=== PATIENT | female | born 1975 | race Caucasian/White ===

== ENCOUNTER 2017-10-30 10:59 | Emergency (ER) | payer OTHER, SELFPAY ==
[2017-10-30 11:00] VITALS: BP 197/132; PULSE 101; RESP 20; TEMP 36.9; O2SAT 100; BMI 31.4
--- NOTE | 2017-10-30 11:13 | CT_ITS ---
STUDY: CT ABDOMEN AND PELVIS WITHOUT CONTRAST REASON FOR EXAM: Female, 41 years old. Constipation. Two-week history of intermittent nausea and vomiting. Prior right oophorectomy. RADIATION DOSAGE (If Supplied By Facility): CTDIvol = ( 11.42 ) mGy, DLP = ( 599.16 ) mGycm TECHNIQUE: Transaxial images were obtained from the dome of the diaphragm to the symphysis pubis without oral contrast, and without intravenous contrast. Sagittal and coronal images were reconstructed. Individualized dose optimization techniques were used for this CT. COMPARISON: None. FINDINGS: The visualized lung bases are unremarkable. The visualized portions of the heart are within normal limits. Normal liver. There are surgical clips in the gallbladder fossa consistent with a prior cholecystectomy. Normal spleen. Normal pancreas. Normal bilateral adrenal glands. Normal right kidney. Normal left kidney. There is a small hiatal hernia. Normal small intestine. Normal colon. The appendix is visualized and appears normal. Normal abdominal aorta. Normal inferior vena cava. Normal retroperitoneum. Normal urinary bladder. There are small benign-appearing bilateral inguinal lymph nodes. Normal abdominal wall. There are mild degenerative changes of the visualized lumbar spine. CT/Abdomen/Pelvis without Cont IMPRESSION: Normal unenhanced CT of the abdomen and pelvis. Electronically Signed: Mal Pedersen MD at 12:27 EST Tel [phone], Service support ,
[2017-10-30] MEDS: 0.9% Normal Saline 1,000 ML 125 ML IV (11:40)
[2017-10-30 11:43] LABS: Absolute Lymphocyte Count 1.81 X10^3/ul (0.83-4.51); Absolute Neutrophil Count 8.8 X10^3/uL (2.0-7.7); Basophil# 0.02 X10^3/uL; Basophil% 0.2 % (0-1); Eosinophils% 0.9 % (0-5); Hematocrit 44.2 % (37-47); Hemoglobin 15.4 g/dl (12.0-15.0); Lymphocyte # 1.81 X10^3/ul (4.0); Lymphocyte % 15.9 % (19-41); Mean Corp Hgb Conc 34.8 g/gl (32-36); Mean Corpuscular Hgb 29.4 pg (27.0-32.0); Mean Corpuscular Volume 84.4 fL (81-99); Mean Platelet Vol. 9.1 fl (6.2-12.0); Monocyte# 0.67 X10^3/uL; Monocyte% 5.9 % (0-10); Neutrophil # 8.75 X10^3/uL (2.7-7.7); Neutrophil % 76.9 % (47-70); POSITIVE COUNT NO; POSITIVE DIFFERENTIAL NO; POSITIVE MORPHOLOGY NO; Platelet Count 287 K/mm3 (150-450); RBC Distribution Width CV 12.8 % (11.6-14.6); RBC Distribution Width SD 39.4 fl (35.1-43.9); Red Blood Count 5.24 M/mm3 (4.2-5.4); White Blood Count 11.4 K/mm3 (4.4-11.0)
[2017-10-30 11:59] LABS: Anion Gap 9 (5-15); BUN 12 mg/dL (7-18); BUN/Creat Ratio 14.9 RATIO (10-20); Calcium,Total 8.6 mg/dL (8.5-10.1); Chloride 101 mmol/L (98-107); EST Glomerular Filtration Rate 82 mL/min (>60); Est Glom Filt Rate - Afr Amer 100 mL/min (>60); Glucose 111 mg/dL (74-106); Potassium 3.6 mmol/L (3.5-5.1); Sodium Level 137 mmol/L (136-145)
[2017-10-30 13:52] VITALS: BP 127/85; PULSE 61; RESP 15; O2SAT 98
[2017-10-30 13:56] LABS: Mucous, Urine 0 SEEN /hpf (<or=2+); Red Blood Cells-Urine 0 SEEN /hpf (0-5); White Blood Cells 0 SEEN /hpf (0-5)
[2017-10-30 14:03] LABS: Color, Urine Straw (Yellow); Glucose, Dipstick Normal (Normal); Ketone-Dipstick 15 mg/dl (Negative); Leukocyte Esterase-Dipstick Negative /ul (Negative); Nitrite-Dipstick Negative (Negative); Occult Blood-Urine Negative /ul (Negative); Protein-Dipstick 30 mg/dl (Negative); Specific Gravity, Urine 1.015 (1.002-1.030); Urine Bilirubin Dipstick Negative (Negative); Urine Clarity Sl. Cloudy (Clear); Urine Urobilinogen Normal (Normal)
[2017-10-30 14:19] LABS: Bacteria RARE /hpf (None Seen); Squamous Epithelial Cells - UA 0-5 SEEN /hpf (5-10)
--- NOTE | 2017-10-30 15:00 | ED.VISSUMM ---
- ER Visit Summary Date of Service: 10/30/17 Chief Complaint: [Constipation and abdominal pain] History of Present Illness: The patient is a 41 F [presents to the emergency department chief complaint of abdominal pain and constipation it has been going on for about 2 weeks. Patient states that she has had small bowel movements but has not completely been able to empty her colon in the last 2 weeks. Patient states that she tried to milk of magnesium last night and is had some watery type discharge from her rectum but no solid stool. Patient went to some lower abdominal discomfort and did vomit several times this morning ?3. Patient has not had a fever. Patient denies urinary symptoms. Patient denies any new medications or changes in her diet. Patient does not have a history of constipation.] Physical Examination: [HEENT-PERRLA, EOMI. Cranial nerves II through XII grossly intact. TMs clear. Mucous membranes moist. No adenopathy. Cardiovascular-regular rate and rhythm without murmur or ectopy Lungs-clear to auscultation, chest wall stable without crepitus or subcu emphysema Abdomen-normoactive bowel sounds, soft, mild tenderness over the suprapubic region with some mild guarding. There is no rebound, rigidity, or perineal signs. Rectal exam-there was stool palpated high up in the rectum that was brown and without evidence of blood. No rectal masses palpated. Extremities-intact ?4, normal range of motion, normal pulses, atraumatic] Test Results: [CBC with differential was normal. Chemistries were unremarkable. CT flank showed nothing acute. Urinalysis was normal.] Emergency Department Course and Treatment: [Patient had a soapsuds enema which gave her great relief and she had a large bowel movement in the department. Patient feels significantly better.] Treatment Plan: [Patient advised to increase fiber intake and use MiraLAX daily. Patient advised to make sure she drinks enough water every day.] Disposition: [Discharged to home in stable condition] Impression: [Abdominal pain Constipation] This note was generated with [employer] dictation software. It may contain incorrect words, spelling, and punctuation that were not noted in review of the chart prior to signing ED Disposition - Plan for ED Patient: Chief Complaint: Constipation Referrals: Maura Posey MD [Primary Care Provider] -
--- NOTE | 2017-10-30 15:03 | ED.DEP ---
ED Disposition - Plan for ED Patient: Chief Complaint: Constipation Instructions: ED Constipation Prescriptions: ProMETHAzine [Phenergan] 25 mg PO Q6H PRN PRN #10 tab PRN Reason: Nausea Referrals: Amelia Akbar DO [STAFF PHYSICIAN] - 5-7 Days
[2017-10-30 15:04] VITALS: BP 134/77; PULSE 62; RESP 15; O2SAT 98
[2017-10-30 15:10] VITALS: BP 123/77; PULSE 81; RESP 16; O2SAT 98
== END 2017-10-30 15:11 | disposition home or self-care (01) ==
LOC: ED 12:18
PROVIDERS: Emergency Provider Emergency Medicine; Family Provider Internal Medicine; PCP Internal Medicine
DX: K59.00 Constipation, unspecified (principal); R10.30 Lower abdominal pain, unspecified; J45.909 Unspecified asthma, uncomplicated; G43.909 Migraine, unspecified, not intractable, without status migrainosus; Z79.51 Long term (current) use of inhaled steroids; Z79.899 Other long term (current) drug therapy
CPT/HCPCS: 74176; 80048; 81001; 85025; 96360; 96361; 99285; J7030; A4216

== ENCOUNTER 2018-10-31 14:55 | Emergency (ER) | payer OTHER, SELFPAY ==
[2018-10-31 15:03] VITALS: BP 168/109; PULSE 81; RESP 16; TEMP 36.6; O2SAT 99; BMI 30.9
--- NOTE | 2018-10-31 15:16 | RAD_ITS ---
STUDY: X-RAY - RIGHT HAND REASON FOR EXAM: Female, 42 years old. Trauma, right hand pain TECHNIQUE: 3 view(s) of the hand. COMPARISON: None. FINDINGS: Normal radiocarpal articulation. Normal distal radioulnar joint. Normal visualized carpal bones. Normal carpal articulations Normal carpometacarpal articulation of the thumb. Normal second through fifth carpometacarpal joints. Normal metacarpi. Normal metacarpophalangeal joint of the thumb. Normal interphalangeal joint of the thumb. Normal proximal and distal phalanges of the thumb. Normal metacarpophalangeal joints of the second through fifth fingers. Normal proximal and distal interphalangeal joints of the second through fifth fingers. Transverse minimally angulated fracture at the base of the fifth proximal phalanx with less than 2 mm of displacement. There is soft tissue swelling of the fifth digit. The soft tissue structures are otherwise unremarkable. RAD/Hand Min 3 Views IMPRESSION: Fifth proximal phalanx fracture. Electronically Signed: Daryl Valadez MD at 15:42 EST , Service support ,
[2018-10-31] MEDS: oxyCODONE 5 MG Tablet PO (15:20)
--- NOTE | 2018-10-31 16:12 | ED.DCSUM_ITS ---
- ER Visit Summary Date of Service: 10/31/18 Chief Complaint: Right fifth finger injury History of Present Illness: The patient is a 42 F presents to the emergency department with right fifth finger injury. Patient was in her normal state of health. She slipped and struck her hand. She states that she had immediate pain in the fifth finger. She was unable to extend it secondary to pain. She did not strike her head. She denies other injury. The patient is otherwise been in her normal state of health. Physical Examination: Patient does have some ecchymosis and swelling over the right fifth finger. She has mild flexion. She guards against extension secondary to pain. Refills less than 2 seconds. Two-point determination is preserved. Test Results: [] Emergency Department Course and Treatment: X-rays were obtained of the finger. Patient has a minimally displaced fracture at the base of the proximal fifth phalanges. She is placed in an AlumaFoam splint. She will be given analgesics and outpatient orthopedic follow-up. Patient is comfortable with this plan of care. Treatment Plan: [] Disposition: Discharge Impression: 1. Right fifth finger fracture This note was generated with gocarsh[employer].comation software. It may contain incorrect words, spelling, and punctuation that were not noted in review of the chart prior to signing ED Disposition - Plan for ED Patient: Instructions: ED Fx Finger Closed Prescriptions: Oxycodone HCl/Acetaminophen [Percocet 5/325] 1 tab PO Q6H PRN PRN 3 Days #12 tab PRN Reason: Pain Referrals: Nghia Carlisle MD [STAFF PHYSICIAN] - 2 Days
== END 2018-10-31 16:38 | disposition home or self-care (01) ==
LOC: ED 16:22
PROVIDERS: Emergency Provider Emergency Medicine; Family Provider Internal Medicine; PCP Internal Medicine
DX: S62.616A Displaced fracture of proximal phalanx of right little finger, initial encounter for closed fracture (principal); J45.909 Unspecified asthma, uncomplicated; Z79.51 Long term (current) use of inhaled steroids; Z79.899 Other long term (current) drug therapy; W01.10XA Fall on same level from slipping, tripping and stumbling with subsequent striking against unspecified object, initial encounter; Y93.89 Activity, other specified; Y92.89 Other specified places as the place of occurrence of the external cause; Y99.8 Other external cause status
CPT/HCPCS: 73130; 99283

== ENCOUNTER 2019-11-04 09:26 | Inpatient (IN) | payer OTHER, SELFPAY ==
[2019-11-04] VITALS (44 sets, daily range): BP systolic 116–217; BP diastolic 60–131; PULSE 53–98; RESP 11–26; TEMP 36.6; O2SAT 95–100; BMI 32.3; BMI 31.8
--- NOTE | 2019-11-04 09:38 | RAD_ITS ---
STUDY: X-RAY CHEST REASON FOR EXAM: Female, 43 years old. Chest pain, abnormal EKG in doctors office TECHNIQUE: Single AP portable view of the chest. COMPARISON: None. FINDINGS: Cardiac silhouette unremarkable. Pulmonary vascularity unremarkable. Aorta unremarkable. No focal patchy airspace opacities. No pleural effusions. Upper abdomen unremarkable. Osseous structures intact. No pneumothorax. RAD/Chest 1 View (Portable) IMPRESSION: No acute cardiopulmonary findings Electronically Signed: João Lieberman DO at 10:22 EST Tel , Service support ,
--- NOTE | 2019-11-04 09:38 | EKG12_ITS ---
Test Reason : CP Blood Pressure : / mmHG Vent. Rate : 086 BPM Atrial Rate : 086 BPM P-R Int : 168 ms QRS Dur : 094 ms QT Int : 382 ms P-R-T Axes : 017 -35 075 degrees QTc Int : 457 ms Normal sinus rhythm Left axis deviation Left ventricular hypertrophy with repolarization abnormality Abnormal ECG Confirmed by SAROJ MAGAÑA, REBECA ([id number]), purchasing expeditor CHIVO SAMUEL ([id number]) on 11/08/2019 8:49:24 AM Referred By: Iban Zarate Confirmed By:ZAHEER KYLE MD
--- NOTE | 2019-11-04 09:40 | ED.DCSUM_ITS ---
History of Present Illness Chief Complaint: Chest Pain Detail of Chief Complaint: Migraine headache followed by chest discomfort Informant: Patient Onset: Today, - - Administered Imitrex at 0300. She administered second dose at 0530. Proximally 30 minutes later she complained of discomfort/funny feeling in her chest. She was able to go to sleep. The pain was still present upon awakening. Coworker commented she did not look well. She went to her primary care physician who sent her to the emergency department. Context: Sudden Onset Timing: Continuous Quality: Comfort Location: Right/mid chest Current Severity: - - Chest pain-free since 844 Maximum Severity: Moderate Worsened by: Uncertain Relieved by: Nothing Associated Symptoms: Shortness of breath Narrative: Patient is a 43-year-old woman with history of migraine headaches who presents from physician's office because of chest pain. She states she has history of asthma and has white coat syndrome. She complained of headache administered Imitrex. Since headache did not resolve she administered second dose of Imitrex. Shortly thereafter she developed chest discomfort with shortness of breath. She was able to fall asleep. Upon awakening she had chest pain. She is unable to determine whether the pain had change in its intensity. Did not change in its location or quality. She states that were coworkers noted she not look well. She went to physicians office because of the chest pain. Physician sent her here. EKG was performed at physician's office and revealed a sinus rhythm. There is evidence of LVH with ST T wave repolarization changes. There is J-point elevation inferior leads. There is no loss of the concavity of the ST-T wave segment. Patient denies history of VTE. She denies leg pain, swelling discoloration. She states she is presently on her menstrual cycle. She denies family history of coronary disease. She denies family history of stroke at early age. She states she smoked for short period of time in college. Prior similar symptoms: No Recent Illness/Hospitalization: No - Past Medical History (1) Migraine headache Status: Acute (2) Asthma Status: Acute Past Medical History - Allergies and Home Meds Allergies/Adverse Reactions: Allergies acetaminophen [From Midrin] Allergy (Verified 11/04/19 09:32) Other codeine Allergy (Verified 11/04/19 09:32) Unknown dichloralphenazone [From Midrin] Allergy (Verified 11/04/19 09:32) Other isometheptene mucate [From Midrin] Allergy (Verified 11/04/19 09:32) Other Primary Care Physician: Amelia Akbar DO [Primary Care Provider] - Prior records reviewed: Yes Surgical History: cholecystectomy, - - Right oophorectomy and extraction of wisdom teeth Lives: Alone Smoking Status: Never smoker Alcohol: None Drugs: None Review of Systems General: Denies: Chills, Fever, Sweats Eyes: Denies: Visual changes - bilaterally, Blurred Vision - bilaterally, Diplopia ENT: Reports: - - He denies ringing in ears or decreased hearing.. Denies: Rhinorrhea, Sore throat Cardiovascular: Reports: Chest pain. Denies: Palpitations, Heart racing, -, - Respiratory: Reports: Dyspnea. Denies: Cough, Sputum, Dyspnea on exertion, Orthopnea, Paroxysmal nocturnal dyspnea, -, - Gastrointestinal: Denies: Abdominal pain, Nausea, Vomiting, Diarrhea, Melena, Hematochezia Genitourinary: Denies: Dysuria, Hematuria, Frequency Musculoskeletal: Reports: Neck pain. Denies: Myalgias, Arthralgias, Back pain, Swelling, Extremity Pain, -, - Neurological: Reports: Headache. Denies: Weakness, Parasthesia, Numbness, -, - Hematologic: Denies: Easy bruising, Easy bleeding Allergy: Denies: Uticaria Physical Exam Vital Signs/Narrative: Vital Signs Temp Pulse Resp BP Pulse Ox 11/04/19 09:27 97.8 F 95 16 217/131 H 100 Inital Vital Signs reviewed: Yes General: Well nourished, Well developed, Obese, No Acute Distress Head: Normocephalic, Atraumatic Eyes: Perrl, EOMI. Negative for: Pale conjunctiva, Scleral icterus ENT: Moist mucous membranes, No rhinorrhea Neck: Supple, Nontender, No lymphadenopathy, No JVD Cardiovascular: Regular rate, Regular rhythm, No murmurs, Normal S1, Normal S2 Respiratory: No distress, CTA bilaterally, Chest nontender Abdomen: Soft, Nontender, Nondistended, Normal bowel sounds Back: Nontender, Normal Inspection Extremities: Nontender, No edema, - - There is no asymmetry, swelling, discoloration, leg vein distention, palpable cords or tenderness along the distribution of the deep venous system. Skin: Normal color, No rash Neurological: Alert, Oriented x3, Cranial nerves II-XII grossly intact, Normal Strength, Normal Sensation Psychological: - - Patient is slightly anxious. Diagnostic/Tx/Re-eval Chest X-Ray - ED: 1 View, Read by ED Physician, Normal, Heart, Lungs, Mediastinum, Bony Structures, No Acute Disease, Chronic Changes 11/04/19 09:38 Chest 1 View (Portable) [RAD] Stat Impressions Chest X-Ray 11/04/19 09:38 IMPRESSION: No acute cardiopulmonary findings Electronically Signed: João Lieberman, at 10:22 EST Tel , Service support , 11/04/19 09:38 Chest 1 View (Portable) [RAD] Stat Laboratory Results 11/04/19 11/04/19 09:55 09:55 WBC 7.9 RBC 5.19 Hgb 15.0 Hct 43.8 MCV 84.4 MCH 28.9 MCHC 34.2 RDW Std Deviation 38.7 RDW Coeff of Melanie 12.6 Plt Count 257 MPV 9.9 Immature Gran % (Auto) 0.100 Neut % (Auto) 64.2 Lymph % (Auto) 26.5 [place] % (Auto) 6.1 Eos % (Auto) 2.7 Baso % (Auto) 0.4 Absolute Neuts (auto) 5.1 Absolute Lymphs (auto) 2.08 Nucleated RBC % 0 Sodium 138 Potassium 3.6 Chloride 106 Carbon Dioxide 27.0 Anion Gap 5 BUN 16 Creatinine 0.88 Estim Creat Clear Calc 69.71 Est GFR (MDRD) Af Amer 89 Est GFR (MDRD) Non-Af 73 BUN/Creatinine Ratio 18.1 Glucose 108 H Calcium 9.4 Troponin I 0.296 H Troponin is elevated at 0.296. CBC is unremarkable. Basic metabolic panel is unremarkable. Patient was informed of results and need for admission and further testing. Her most recent blood pressure is 192/107 with a heart rate of 92. 20 mg of labetalol was ordered. The hospitalist was paged for admission. Patient was informed she will need either a stress test or potentially a cardiac catheterization especially if her enzymes rise. - EKG Initial EKG Interpretation: Sinus Rhythm - Sinus rhythm with a ventricular rate 86. CA interval is 168 ms. QS duration 94 ms. QT duration 382 ms. [place] to the left. There is evidence of left ventricular hypertrophy with repolarization abnormality. This is unchanged from EKG dated July 28, 2008. The left ventricular hypertrophy may be due to untreated hypertension. - Medical Decision Making Patient presents with chest pain. Differential would include adverse reaction to Imitrex, heart strain due to markedly elevated blood pressure 201/141, cardiac ischemia, GI etiology. EKG, blood work and chest x-ray obtained. Initial blood pressure per triage was 217/131. Patient did not receive anticoagulant because of her elevated blood pressure and concern for intracranial bleed. She did receive aspirin and labetalol as previously documented. - Critical Care Time Critical care time (excluding procedures): 30-74 minutes, Discussing w/Patient &/or Family/Palliative Care Specialist, Discussing w/Consultants, Arranging Admission or Transfer - This includes time for history, review of prior records, documentation ED Disposition - Plan for ED Patient: Disposition: Acute Care Hospital [facility] Diagnosis: Midsternal chest pain, Hypertensive urgency, Elevated troponin I level Referrals: Amelia Akbar DO [Primary Care Provider] -
[2019-11-04] MEDS: Aspirin 81 MG TAB.CHEW 324 MG PO (10:06)
[2019-11-04 10:10] LABS: Absolute Lymphocyte Count 2.08 X10^3/uL (0.83-4.51); Absolute Neutrophil Count 5.1 X10^3/uL (2.0-7.7); Basophil# 0.03 X10^3/uL; Basophil% 0.4 % (0-1); Eosinophil# 0.21 X10^3/uL; Eosinophils% 2.7 % (0-5); Hematocrit 43.8 % (37-47); Lymphocyte # 2.08 X10^3/ul (4.0); Lymphocyte % 26.5 % (19-41); Mean Corp Hgb Conc 34.2 g/dL (32-36); Mean Corpuscular Hgb 28.9 pg (27.0-32.0); Mean Corpuscular Volume 84.4 fL (81-99); Mean Platelet Vol. 9.9 fl (6.2-12.0); Monocyte# 0.48 X10^3/uL; Monocyte% 6.1 % (0-10); NRBC Flagged by Analyzer 0 % (0-5); Neutrophil # 5.05 X10^3/uL (2.7-7.7); Neutrophil % 64.2 % (47-70); Platelet Count 257 K/mm3 (150-450); RBC Distribution Width CV 12.6 % (11.6-14.6); RBC Distribution Width SD 38.7 fl (35.1-43.9); Red Blood Count 5.19 M/mm3 (4.2-5.4); White Blood Count 7.9 K/mm3 (4.4-11.0)
[2019-11-04 10:23] LABS: Anion Gap 5 (5-15); BUN 16 mg/dL (7-18); BUN/Creat Ratio 18.1 RATIO (10-20); Calcium,Total 9.4 mg/dL (8.5-10.1); Chloride 106 mmol/L (98-107); Creatinine, Serum 0.88 mg/dL (0.55-1.02); EST Glomerular Filtration Rate 73 mL/min (>60); Est Glom Filt Rate - Afr Amer 89 mL/min (>60); Estimated Creatinine Clearance 69.71 ml/min; Glucose 108 mg/dL (74-106); Potassium 3.6 mmol/L (3.5-5.1); Sodium Level 138 mmol/L (136-145)
--- NOTE | 2019-11-04 11:05 | HP.PCM_ITS ---
Problem List (1) Migraine headache Status: Acute (2) Asthma Status: Acute (3) Midsternal chest pain Status: Acute (4) Elevated troponin I level Status: Acute (5) Hypertensive emergency Status: Acute History of Present Illness Date of Admission: 11/04/19 Chief Complaint: Chest tightness/hypertensive emergency The patient is a 43 year old F with history of migraine headache and asthma came to ER with chest tightness. Earlier in the morning on day of admission, she had migraine headache and took 2 doses of Imitrex 50 mg 1/2 hours apart. Thereafter, she felt chest tightness/abnormal feeling of chest but without shortness of breath, palpitation, near syncope or syncope. This discussion lasted for 3 hours while she was working therefore came to ER. In ED, triage vitals shows blood pressure 217/131, heart rate 95, pulse ox 100% on room air. In ED, she was given labetalol 20 mg IV [, still her blood pressure is 184/113.] EKG shows normal sinus rhythm, LAD, LVH with repolarization abnormality and nonspecific ST-T changes. Previous EKG of 2007 did not had LAD, LVH or repolar ization abnormality. Brim Welt Sewing Machine Operator is consulted. Patient is started on nicardipine drip and admitted in ICU. Past Medical History Allergies acetaminophen [From Midrin] Allergy (Verified 11/04/19 09:32) Other codeine Allergy (Verified 11/04/19 09:32) Unknown dichloralphenazone [From Midrin] Allergy (Verified 11/04/19 09:32) Other isometheptene mucate [From Midrin] Allergy (Verified 11/04/19 09:32) Other Home Medications: Ambulatory Orders Medication Instructions Recorded Albuterol Inhaler [Ventolin Hfa] 2 puff INHALATION Q6H PRN PRN 10/03/13 Fluticasone/Salmeterol [Advair 1 puff INHALATION BID 10/03/13 250/50 Mcg Diskus] Sumatriptan Succinate [Imitrex] 100 mg PO .X1 PRN 10/03/13 Surgical History: cholecystectomy, - - Right oophorectomy and extraction of wisdom teeth Lives: Alone Smoking Status: Never smoker Tobacco Use: Non-smoker Alcohol: None Drugs: None - *Family History Maternal History Items: Heart Disease - Pacemaker, Hypertension Review of Systems Constitutional: Reports: Malaise, Weakness. Denies: Chills, Fever, Night Sweats, Weight Change HEENT: Denies: Head Aches, Sinus Congestion, Sinus Drainage Cardiovascular: Reports: Chest Tightness. Denies: Chest Pain, Palpitations Respiratory: Denies: Cough, Hemoptysis, Shortness of Breath, Shortness of breath at rest, Sputum production Gastrointestinal: Denies: Abdominal Pain, Nausea, Vomiting Genitourinary: Denies: Dysuria, Frequency, Hematuria, Incontinence, Nocturia, Retention, Urgency Musculoskeletal: Denies: Joint Pain, Joint Tenderness Skin: Denies: Rash, Wounds Neurological: Reports: Headaches. Denies: Balance problems, Blurred vision, Double vision, Change in Speech, Slurred speech, Focal weakness, Numbness, Tingling Psychiatric: Denies: Anxiety, Depression, Homicidal Ideations, Suicidal Ideations Hematologic/ Lymphatic: Denies: Easy Bruising, Easy Bleeding VTE Information - Inpt Only VTE Present on Admission: No VTE Mechan Device Prophylaxis: None VTE Pharm Prophylaxis ordered?: Yes Patient Problems: Active and Suspected Problems Midsternal chest pain (Acute) Elevated troponin I level (Acute) Hypertensive emergency (Acute) - Physical Exam Vitals/I&O's: Vital Signs Temp Pulse Resp BP Pulse Ox 97.8 F 96 18 187/125 H 99 11/04/19 09:27 11/04/19 10:53 11/04/19 10:53 11/04/19 10:53 11/04/19 10:53 Oxygen Flow Rate (L/min) 2 Oxygen Delivery Method Nasal Cannula Weight: 188 lb 0.869 oz Body Mass Index (BMI) 32.3 General: Alert, Oriented x3, Cooperative HEENT: Atraumatic, PERRLA, EOMI, Normocephalic Oral: No Gingival or Mucosal Lesions/ Ulcerations, Dry Mucosa Neck: Supple, No JVD, Negative Carotid Bruits Lungs: Clear to auscultation, Normal air movement Cardiovascular: Regular rate, Regular Rhythm, Normal S1, Normal S2, No murmurs Abdomen: Bowel Sounds Present, Soft, Non Tender, Non-Distended Extremities: Capillary Refill Less than 3 Seconds, Edema Skin: No rashes, No breakdown Musculoskeletal: No Tenderness to Palpation of Joints or Extremities Lymphatic: No Cervical, Supraclavicular, or Inguinal Adenopathy Neurological: Cranial nerves II-XII grossly intact, Deep Tendon Reflexes 2+/4 and Symmetrical, Neuro grossly intact, Motor Exam 5/5 strength throughout Psych/Mental Status: Normal Affect, Appropriate Laboratory Results 11/04/19 09:55: WBC 7.9, RBC 5.19, Hgb 15.0, Hct 43.8, MCV 84.4, MCH 28.9, MCHC 34.2, RDW Std Deviation 38.7, RDW Coeff of Melanie 12.6, Plt Count 257, MPV 9.9, Immature Gran % (Auto) 0.100, Neut % (Auto) 64.2, Lymph % (Auto) 26.5, [place] % (A uto) 6.1, Eos % (Auto) 2.7, Baso % (Auto) 0.4, Absolute Neuts (auto) 5.1, Absolute Lymphs (auto) 2.08, Nucleated RBC % 0 11/04/19 09:55: Sodium 138, Potassium 3.6, Chloride 106, Carbon Dioxide 27.0, Anion Gap 5, BUN 16, Creatinine 0.88, Estim Creat Clear Calc 69.71, Est GFR (MDRD) Af Amer 89, Est GFR (MDRD) Non-Af 73, BUN/Creatinine Ratio 18.1, Glucose 108 H, Calcium 9.4, Troponin I 0.296 H Assessment/Plan All Active Problems Migraine headache (Acute) Asthma (Acute) Midsternal chest pain (Acute) Elevated troponin I level (Acute) Hypertensive emergency (Acute) The patient is a 43 year old F with history of migraine headache and asthma came to ER with chest tightness In ED, triage vitals shows blood pressure 217/131, heart rate 95, pulse ox 100% on room air. I EKG shows normal sinus rhythm, LAD, LVH with repolarization abnormality and nonspecific ST-T changes. Previous EKG of 2007 did not had LAD, LVH or repolarization abnormality. Brim [employer] Sewing Machine Operator is consulted. Patient is started on nicardipine drip and admitted in ICU. 1. Hypertensive emergency with atypical chest pain/non-STEMI: Patient is being admitted in ICU. First troponin 0 0.296 serial troponin enzymes. Started on nicardipine drip. Repeat twelve-lead EKG. Brim Welt Sewing Machine Operator is been consulted. 2D echo ordered. Patient had aspirin in ER. Started on aspirin and low-dose Coreg. 2. Abnormal EKG: Showing changes of LVH with repolarization abnormality. 3. Migraine headache on Imitrex:Not a good candidate for Imitrex going forward. It has side effect/complaint of hypertensive emergency and dissection. 4. Chronic asthma: Stable. On albutero INHALER as needed. 5. DVT prophylaxis: Lovenox 40 mG subcu daily Clinical Impression(s) from Imaging Studies Chest X-Ray 11/04/19 09:38 IMPRESSION: No acute cardiopulmonary findings Code Visit Inpatient E&M: 70333 Init Hosp L3
--- NOTE | 2019-11-04 11:43 | EKG12_ITS ---
Test Reason : AM EKG Blood Pressure : / mmHG Vent. Rate : 065 BPM Atrial Rate : 065 BPM P-R Int : 176 ms QRS Dur : 104 ms QT Int : 444 ms P-R-T Axes : 034 -44 -86 degrees QTc Int : 461 ms Normal sinus rhythm Left axis deviation Voltage criteria for left ventricular hypertrophy ST & T wave abnormality, consider inferior ischemia ST & T wave abnormality, consider anterolateral ischemia Prolonged QT Abnormal ECG Confirmed by OLIVE MAGAÑA, CLAIR ([id number]), copy editor JOEY DORANTES ([id number]) on 11/10/2019 1:51:38 PM Referred By: Iban Zarate Confirmed By:CLAIR SCHAEFER MD
--- NOTE | 2019-11-04 12:09 | ECHOCS_ITS ---
Reason For Study: HTN emergency Procedure This was a 2D Doppler, Color Flow transthoracic echocardiogram. Exam performed portable in ICU/CCU. Left Ventricle Normal LV size. Concentric left ventricular hypertrophy. The estimated ejection fraction is 60 %. Normal diastology for age. No regional wall motion abnormalities noted. Right Ventricle Normal RV size. Normal systolic function. Atria Normal left atrium. Normal right atrium. Normal atrial septum. Mitral Valve There is no mitral valve stenosis. No mitral valve insufficiency. Tricuspid Valve There is no tricuspid stenosis. Unable to estimate RV systolic pressure due to insufficient tricuspid regurgitant envelope. No tricuspid valve insufficiency. Aortic Valve Trisinus/trileaflet aortic valve. There is no aortic stenosis. No aortic valve insufficiency. Pulmonic Valve There is no pulmonic valvular stenosis. No pulmonic valve insufficiency. Great Vessels Normal aortic root. Pericardium/Pleural No pericardial effusion. MMode/2D Measurements & Calculations LVIDd: 5.2 cm IVSd: 1.2 cm Ao root diam: 3.3 cm LVIDs: 3.8 cm LVPWd: 1.2 cm RVDd: 2.8 cm FS: 27.2 % LAV(MOD-bp): 56.2 ml LVAd ap4: 31.0 cm2 SV(MOD-sp4): 51.4 ml LAV(MOD-bp) Indexed: 29.5 ml/m2 EDV(MOD-sp4): 93.6 ml LAV(MOD-sp2): 34.2 ml EDV(sp4-el): 96.8 ml LAV(MOD-sp4): 79.0 ml LVAs ap4: 19.1 cm2 ESV(MOD-sp4): 42.2 ml ESV(sp4-el): 42.2 ml EF(MOD-sp4): 54.9 % EF(sp4-el): 56.4 % SV(sp4-el): 54.5 ml LA A4 area: 24.0 cm2 LA dimension(2D): 3.9 cm RA A4 area: 15.2 cm2 Doppler Measurements & Calculations MV E max jovi: 64.2 cm/sec Lat Peak E' Jovi: 6.7 cm/sec Med Peak E' Jovi: 4.6 cm/sec MV A max jovi: 95.2 cm/sec E/E' lat: 9.6 E/E' med: 14.0 MV E/A: 0.67 Ao V2 max: 162.2 cm/sec LV V1 max: 103.0 cm/sec PA V2 max: 112.5 cm/sec Ao max P.5 mmHg LV V1 max P.2 mmHg Interpretation Summary The estimated ejection fraction is 60 %. Normal diastology for age. Concentric left ventricular hypertrophy. Ordering Physician: Iban Zarate Referring Physician: Amelia Akbar M.D. Performed By: Lili Leigh RDCS
[2019-11-04 12:50] LABS: Magnesium 2.2 mg/dL (1.6-2.6)
[2019-11-04] MEDS: Enoxaparin 40 MG/0.4 ML Syringe SC (12:57)
[2019-11-04] MEDS: Carvedilol 6.25 MG Tablet PO ×2 (12:57→22:13)
[2019-11-04 15:27] LABS: M R Staph aureus DNA By PCR Negative (Negative); Probe Check PASS; Specimen Processing Control PASS
[2019-11-04] MEDS: Lactated Ringers 1,000 ML 30 ML IV (16:02)
[2019-11-04] MEDS: Ondansetron 4 MG/2 ML Vial IV ×2 (16:04→23:27)
[2019-11-04] MEDS: Morphine 2 MG/ML Syringe IV ×2 (16:25→21:17)
--- NOTE | 2019-11-04 17:16 | CON.PCM_ITS ---
Reason for Consult Date of Consultation: 11/04/19 History of Present Illness: The patient is a 43 year old F [with past medical history of migraine, asthma presenting to the emergency room after a visit to the primary care physician for chest pain. Patient has had migraine since the age of 6 and has been on several medications over the years. She has been on Imitrex for several years. She usually takes 50 mg p.o. 2-3 times a week. This morning she was having migraine headaches and took 50 mg p.o. x1 and then after an hour and a half since she was having ongoing headache took another 50 mg dose. 20 minutes later the headache resolved but patient started having squeezing chest discomfort. She went to work and then went to see her primary care physician. She was then sent to the emergency room by her PCP. When the patient was in the PCPs office her chest pain resolved. In the emergency room patient's blood pressure was 217/131. First troponin was 0.29. Patient was admitted to the ICU and started on Coreg p.o. and nicardipine drip. Her migraine headache has returned. It is associated with nausea and vomiting. Her blood pressure is better at this time. Patient has no prior history of chest pain. She usually does not take an extra dose of Imitrex. Review of systems: All systems reviewed. All else is negative except that in the HPI.] Past Medical History Allergies/Adverse Reactions: Allergies acetaminophen [From Midrin] Allergy (Verified 11/04/19 09:32) Other codeine Allergy (Verified 11/04/19 09:32) Unknown dichloralphenazone [From Midrin] Allergy (Verified 11/04/19 09:32) Other isometheptene mucate [From Midrin] Allergy (Verified 11/04/19 09:32) Other Home Medications: Ambulatory Orders Medication Instructions Recorded Albuterol Inhaler [Ventolin Hfa] 2 puff INHALATION Q6H PRN PRN 10/03/13 Fluticasone/Salmeterol [Advair 1 puff INHALATION BID 10/03/13 250/50 Mcg Diskus] Sumatriptan Succinate [Imitrex] 100 mg PO .X1 PRN 10/03/13 Surgical History: cholecystectomy, - - Right oophorectomy and extraction of wisdom teeth - *Family History Maternal History Items: Heart Disease - Pacemaker, Hypertension Lives: Alone Smoking Status: Never smoker Tobacco Use: Non-smoker Alcohol: None Drugs: None Objective: Vital Signs Temp Pulse Resp BP Pulse Ox 97.9 F 61 16 142/79 H 100 11/04/19 12:00 11/04/19 16:49 11/04/19 16:49 11/04/19 16:49 11/04/19 16:49 Oxygen Flow Rate (L/min) 2 Oxygen Delivery Method Room Air Weight: 185 lb 13.595 oz Body Mass Index (BMI) 31.8 Intake and Output for Last 24 Hours 11/02/19 11/03/19 11/04/19 23:59 23:59 23:59 Intake Total 248.76 / 248.76 Balance 248.76 / 248.76 General: Awake, Alert, Oriented x 3 HEENT: Atraumatic Oral: Moist Mucosa Neck: Supple Lungs: Clear to auscultation Cardiovascular: Regular Rhythm Abdomen: Soft Extremities: No edema Skin: No Rashes Psych/Mental Status: Appropriate 11/04/19 09:55: WBC 7.9, RBC 5.19, Hgb 15.0, Hct 43.8, MCV 84.4, MCH 28.9, MCHC 34.2, Plt Count 257, MPV 9.9, Immature Gran % (Auto) 0.100, Neut % (Auto) 64.2, Lymph % (Auto) 26.5, [place] % (Auto) 6.1, Eos % (Auto) 2.7, Baso % (Auto) 0.4, Absolute Neuts (auto) 5.1, Nucleated RBC % 0 11/04/19 09:55: Sodium 138, Potassium 3.6, Chloride 106, Carbon Dioxide 27.0, Anion Gap 5, BUN 16, Creatinine 0.88, Est GFR (MDRD) Af Amer 89, Est GFR (MDRD) Non-Af 73, BUN/Creatinine Ratio 18.1, Glucose 108 H, Calcium 9.4, Troponin I 0.296 H 11/04/19 09:55: Magnesium 2.2 Rhythm: EKG: ECHO: Stress Test: Cardiac Cath: PCI: CT Surgery: Holter monitor: EPS: PPM: CXR: Chest CT Scan: Assessment/Plan 1. Chest pain: Appears to be related to a combination of coronary vasospasm secondary to the additional dose of Imitrex and/or hypertensive urgency due to the higher dose of Imitrex as well. Agree with cycling cardiac enzymes. Patient could get an outpatient stress test. At this time she is having migraine and is uncomfortable and will not be a candidate for a stress test. Explained to the patient that if her cardiac enzymes go up significantly then we could consider coronary angiography. I think it will be reasonable to look for alternatives to Imitrex for this patient. If there is no ideal alternative available then patient can potentially be on Imitrex as she has tolerated this for several years but should not take more than 50 mg in a 24-hour period. 2. Hypertensive urgency: This also appears to be related to the higher than accustomed dose of Imitrex. However patient apparently has had blood pressures in the 140s over 80s to 90 in the past. I agree with keeping her on carvedilol 6.25 mg p.o. twice daily. Thank you very much for letting us participate in the care of this patient. We will continue to follow her along with you.
[2019-11-04] MEDS: Ketorolac 30 MG/ML Syringe IV (18:40)
[2019-11-04] MEDS: Losartan Potassium 50 MG Tablet PO (18:46)
[2019-11-04] MEDS: Famotidine 20 MG Tablet PO (22:13)
[2019-11-05] VITALS (32 sets, daily range): BP systolic 105–167; BP diastolic 52–99; PULSE 61–86; RESP 12–23; TEMP 36.5–37.3; O2SAT 95–100
[2019-11-05] MEDS: Morphine 2 MG/ML Syringe IV ×4 (04:03→18:21)
[2019-11-05 05:21] LABS: Absolute Lymphocyte Count 1.45 X10^3/uL (0.83-4.51); Absolute Neutrophil Count 10.2 X10^3/uL (2.0-7.7); Basophil# 0.03 X10^3/uL; Basophil% 0.2 % (0-1); Eosinophil# 0.06 X10^3/uL; Eosinophils% 0.5 % (0-5); Hematocrit 40.9 % (37-47); Lymphocyte # 1.45 X10^3/ul (4.0); Lymphocyte % 11.6 % (19-41); Mean Corp Hgb Conc 34.2 g/dL (32-36); Mean Corpuscular Hgb 29.2 pg (27.0-32.0); Mean Corpuscular Volume 85.4 fL (81-99); Mean Platelet Vol. 9.3 fl (6.2-12.0); Monocyte# 0.72 X10^3/uL; Monocyte% 5.8 % (0-10); NRBC Flagged by Analyzer 0 % (0-5); Neutrophil # 10.19 X10^3/uL (2.7-7.7); Neutrophil % 81.5 % (47-70); Platelet Count 232 K/mm3 (150-450); RBC Distribution Width CV 12.8 % (11.6-14.6); RBC Distribution Width SD 39.3 fl (35.1-43.9); Red Blood Count 4.79 M/mm3 (4.2-5.4); White Blood Count 12.5 K/mm3 (4.4-11.0)
--- NOTE | 2019-11-05 05:55 | EKG12_ITS ---
Test Reason : AM EKG Blood Pressure : / mmHG Vent. Rate : 072 BPM Atrial Rate : 072 BPM P-R Int : 186 ms QRS Dur : 100 ms QT Int : 480 ms P-R-T Axes : 049 -41 -79 degrees QTc Int : 525 ms Normal sinus rhythm Left axis deviation Voltage criteria for left ventricular hypertrophy ST & T wave abnormality, consider inferior ischemia ST & T wave abnormality, consider anterolateral ischemia Prolonged QT Abnormal ECG Confirmed by OLIVE MAGAÑA, CLAIR ([id number]), television news video editor JOEY DORANTES ([id number]) on 11/10/2019 1:53:28 PM Referred By: Iban Zarate Confirmed By:CLAIR SCHAEFER MD
[2019-11-05] MEDS: Aspirin E.C. 81 MG Tablet PO (05:59)
[2019-11-05] MEDS: Losartan Potassium 50 MG Tablet PO (05:59)
[2019-11-05] MEDS: Carvedilol 6.25 MG Tablet PO ×2 (05:59→21:35)
[2019-11-05 06:15] LABS: AST(SGOT) 109 U/L (15-37); Alanine Aminotransfer ALT/SGPT 28 U/L (13-56); Albumin, Serum 3.6 g/dL (3.2-5.0); Alkaline Phosphatase 68 U/L (45-117); Anion Gap 8 (5-15); BUN 11 mg/dL (7-18); BUN/Creat Ratio 16.7 RATIO (10-20); Bilirubin, Direct 0.25 mg/dL (0.00-0.30); Calcium,Total 8.4 mg/dL (8.5-10.1); Chloride 107 mmol/L (98-107); Cholesterol 212 mg/dL (200); Creatinine, Serum 0.66 mg/dL (0.55-1.02); EST Glomerular Filtration Rate 103 mL/min (>60); Est Glom Filt Rate - Afr Amer 124 mL/min (>60); Estimated Creatinine Clearance 92.95 ml/min; Globulin 4.1 g/dL (2.2-4.2); Glucose 123 mg/dL (74-106); High Density Lipoprotein 40 mg/dL; Potassium 3.4 mmol/L (3.5-5.1); Protein, Total 7.7 g/dL (6.4-8.2); Sodium Level 138 mmol/L (136-145); Thyroid Stim Hormone (TSH) 0.83 uIU/mL (0.358-3.74); Triglycerides 178 mg/dL; Very Low Density Lipoprotein 36 mg/dL (5-40)
[2019-11-05] MEDS: TICAGRELOR 90 MG TABLET 180 MG PO (06:35)
[2019-11-05 07:09] LABS: Prothrombin Time (Protime)PT. 13.4 SECONDS (11.7-14.9)
[2019-11-05 07:10] LABS: Partial Thromboplast Time 22.9 Seconds (24.1-36.2)
--- NOTE | 2019-11-05 07:22 | PN_ITS ---
Patient Problems: Active and Suspected Problems Midsternal chest pain (Acute) Elevated troponin I level (Acute) Hypertensive emergency (Acute) Reason for Visit: Hypertensive emergency, migraine headache and non-STEMI Objective: Telemetry reviewed. Normal sinus rhythm. Heart rate and blood pressure is controlled. On nicardipine drip Vitals/I&O's: Vital Signs Temp Pulse Resp BP Pulse Ox 98.8 F 74 15 119/71 100 11/05/19 00:00 11/05/19 06:00 11/05/19 06:00 11/05/19 06:00 11/05/19 06:00 Oxygen Flow Rate (L/min) 2 Oxygen Delivery Method Room Air Weight: 185 lb 13.595 oz Body Mass Index (BMI) 31.8 Intake and Output for Last 24 Hours 11/03/19 11/04/19 11/05/19 23:59 23:59 23:59 Intake Total 465.41 / 546.66 531.25 / 531.25 Output Total 300 / 300 Balance 465.41 / 246.66 231.25 / 231.25 General: Alert, Oriented x3, Cooperative HEENT: Atraumatic, PERRLA, EOMI, Normocephalic, - - Mild photophobia. Oral: No Gingival or Mucosal Lesions/ Ulcerations, Dry Mucosa, - Neck: Supple, No JVD, Negative Carotid Bruits Lungs: Clear to auscultation, Normal air movement, No rhonchi, No wheeze, No rales Cardiovascular: Regular rate, Regular Rhythm, Normal S1, Normal S2, No murmurs Abdomen: Bowel Sounds Present, Soft, Non Tender, Non-Distended Extremities: No edema, Capillary Refill Less than 3 Seconds Skin: No rashes, No breakdown Musculoskeletal: No Tenderness to Palpation of Joints or Extremities, Arthritic Changes Neurological: Cranial nerves II-XII grossly intact Psych/Mental Status: Normal Affect, Appropriate Laboratory Results 11/04/19 09:55: WBC 7.9, RBC 5.19, Hgb 15.0, Hct 43.8, MCV 84.4, MCH 28.9, MCHC 34.2, RDW Std Deviation 38.7, RDW Coeff of Melanie 12.6, Plt Count 257, MPV 9.9, Immature Gran % (Auto) 0.100, Neut % (Auto) 64.2, Lymph % (Auto) 26.5, [place] % (Auto) 6.1, Eos % (Auto) 2.7, Baso % (Auto) 0.4, Absolute Neuts (auto) 5.1, Absolute Lymphs (auto) 2.08, Nucleated RBC % 0 11/04/19 09:55: Sodium 138, Potassium 3.6, Chloride 106, Carbon Dioxide 27.0, Anion Gap 5, BUN 16, Creatinine 0.88, Estim Creat Clear Calc 69.71, Est GFR (MDRD) Af Amer 89, Est GFR (MDRD) Non-Af 73, BUN/Creatinine Ratio 18.1, Glucose 108 H, Calcium 9.4, Troponin I 0.296 H 11/04/19 09:55: Magnesium 2.2 11/04/19 13:03: MRSA (PCR) Negative 11/04/19 17:45: Troponin I 6.950 H* 11/04/19 21:33: Troponin I 11.500 H* 11/04/19 23:33: Troponin I 12.900 H* 11/05/19 05:08: WBC 12.5 H, RBC 4.79, Hgb 14.0, Hct 40.9, MCV 85.4, MCH 29.2, MCHC 34.2, RDW Std Deviation 39.3, RDW Coeff of Melanie 12.8, Plt Count 232, MPV 9.3, Immature Gran % (Auto) 0.400, Neut % (Auto) 81.5 H, Lymph % (Auto) 11.6 L, [place] % (Auto) 5.8, Eos % (Auto) 0.5, Baso % (Auto) 0.2, Absolute Neuts (auto) 10.2 H, Absolute Lymphs (auto) 1.45, Nucleated RBC % 0 11/05/19 05:08: Sodium 138, Potassium 3.4 L, Chloride 107, Carbon Dioxide 23.0, Anion Gap 8, BUN 11, Creatinine 0.66, Estim Creat Clear Calc 92.95, Est GFR (MDRD) Af Amer 124, Est GFR (MDRD) Non-Af 103, BUN/Creatinine Ratio 16.7, Glucose 123 H, Calcium 8.4 L, Total Bilirubin 1.50 H, Direct Bilirubin 0.25, AST 109 H, ALT 28, Alkaline Phosphatase 68, Troponin I 16.600 H*, Total Protein 7.7, Albumin 3.6, Globulin 4.1, Triglycerides 178, Cholesterol 212 H, LDL Cholesterol 136 H, VLDL Cholesterol 36, HDL Cholesterol 40, TSH 0.83 11/05/19 05:08: PT 13.4, INR 1.0, APTT 22.9 L Current Medications Albuterol Sulfate (Ventolin Aerosols) 2.5 mg INHALATION Q2H PRN PRN PRN Reason: SOB/Wheezing Aspirin (Ecotrin) 81 mg PO DAILY@0800 [facility] Last Admin: 11/05/19 05:59 Dose: 81 mg Documented by: Carvedilol (Coreg) 6.25 mg PO BID [facility] Last Admin: 11/05/19 05:59 Dose: 6.25 mg Documented by: Enoxaparin Sodium (Lovenox) 40 mg SC DAILY [facility] Last Admin: 11/04/19 22:57 Dose: Not Given Documented by: Famotidine (Pepcid) 20 mg PO BID [facility] Last Admin: 11/04/19 22:13 Dose: 20 mg Documented by: Glucagon () 1 mg IM .X1 PRN PRN Reason: Hypoglycemia Guaifenesin (Robitussin) 10 ml PO Q4H PRN PRN PRN Reason: COUGH Nicardipine HCl 25 mg/ Sodium (Chloride) 250 mls @ 50 mls/hr CONT INF .Q5H [facility]; Protocol Last Titration: 11/05/19 06:00 Dose: 7.5 mg/hr, 75 mls/hr Documented by: Lactated Ringer's () 1,000 mls @ 30 mls/hr IV .[id number] [facility] Last Admin: 11/04/19 16:02 Dose: 30 mls/hr Documented by: Dextrose (Dextrose 10%-Water) 250 mls @ 999 mls/hr IV .Q16M PRN; Protocol PRN Reason: HYPOGLYCEMIA Potassium Chloride () 10 meq in 100 mls @ 100 mls/hr IV BOLUS Q1H [facility] Stop: 11/05/19 11:14 Losartan Potassium (Cozaar) 50 mg PO DAILY [facility] Last Admin: 11/05/19 05:59 Dose: 50 mg Documented by: Morphine Sulfate () 2 mg IV Q3H PRN PRN PRN Reason: Pain Score 6-10/10 Last Admin: 11/05/19 04:03 Dose: 2 mg Documented by: Nitroglycerin (Nitrostat) 0.4 mg SUBLINGUAL Q5M PRN PRN Reason: CARDIAC/CHEST PAIN Ondansetron HCl (Zofran) 4 mg IV Q8H PRN PRN PRN Reason: NAUSEA/VOMITING Last Admin: 11/04/19 23:27 Dose: 4 mg Documented by: Senna/Docusate Sodium (Senokot-S, Page-Colace) 2 tablet PO BID PRN PRN Reason: Constipation Sodium Chloride () 10 - 40 ml IV UD PRN PRN Reason: SALINE FLUSH STROKE Vital Signs/Narrative: Vital Signs Pulse Resp BP Pulse Ox 11/05/19 06:00 74 15 119/71 100 11/05/19 05:30 127/81 H 11/05/19 05:00 86 19 H 133/91 H 96 11/05/19 04:00 80 20 H 139/86 H 98 Medical Necessity - Tobacco Use Smoking Status: Never smoker Tobacco Use: Non-smoker Assessment/Plan All Active Problems Migraine headache (Acute) Asthma (Acute) Midsternal chest pain (Acute) Elevated troponin I level (Acute) Hypertensive emergency (Acute) The patient is a 43 year old F with history of migraine headache and asthma came to ER with chest tightness In ED, triage vitals shows blood pressure 217/131, heart rate 95, pulse ox 100% on room air. I EKG shows normal sinus rhythm, LAD, LVH with repolarization abnormality and nonspecific ST-T changes. Previous EKG of 2007 did not had LAD, LVH or repolarization abnormality. Floor Waxer is consulted. Patient is started on nicardipine drip and admitted in ICU. 1. Hypertensive emergency with atypical chest pain/non-STEMI: Patient is being admitted in ICU. First troponin 0 0.296 serial troponin enzymes. Started on nicardipine drip. 2D echo ordered. Patient had aspirin in ER. Started on aspirin and low-dose Coreg. 11/05: Mild leukocytosis probably secondary to headache or unclear. No fever. Blood pressure is controlled, will try to taper down to completely discontinue. 2. NSTEMI with Abnormal EKG possible inferolateral ischemia: Showing changes of LVH with repolarization abnormality. Repeat EKG done in the morning shows normal sinus rhythm with deep T wave inversion in V3 to V6 and inferior leads. Similar LVH with repolarization abnormality. Overall consistent with inferior lateral ischemia. Troponin elevated, max 16. Plan for cardiac cath in the morning. 3. Migraine headache on Imitrex:Not a good candidate for Imitrex going forward. It has side effect/complaint of hypertensive emergency and dissection. 4. Dyslipidemia: Total cholesterol 212, LDL 136, HDL 40. High intensity statin. 4. Chronic asthma: Stable. On albutero INHALER as needed. Can have home inhaler, Advair 5. DVT prophylaxis: Lovenox 40 mG subcu daily Clinical Impression(s) from Imaging Studies Chest X-Ray 11/04/19 09:38 IMPRESSION: No acute cardiopulmonary findings Laboratory Results 11/04/19 09:55: - Troponin I 0.296 H 11/04/19 09:55: Magnesium 2.2 11/04/19 13:03: MRSA (PCR) Negative 11/04/19 17:45: Troponin I 6.950 H* 11/04/19 21:33: Troponin I 11.500 H* 11/04/19 23:33: Troponin I 12.900 H* 11/05/19 05:08: WBC 12.5 H, RBC 4.79, Hgb 14.0, Hct 40.9, MCV 85.4, MCH 29.2, MCHC 34.2, RDW Std Deviation 39.3, RDW Coeff of Melanie 12.8, Plt Count 232, MPV 9.3, Immature Gran % (Auto) 0.400, Neut % (Auto) 81.5 H, Lymph % (Auto) 11.6 L, [place] % (Auto) 5.8, Eos % (Auto) 0.5, Baso % (Auto) 0.2, Absolute Neuts (auto) 10.2 H, Absolute Lymphs (auto) 1.45, Nucleated RBC % 0 11/05/19 05:08: Sodium 138, Potassium 3.4 L, Chloride 107, Carbon Dioxide 23.0, Anion Gap 8, BUN 11, Creatinine 0.66, Estim Creat Clear Calc 92.95, Est GFR (MDRD) Af Amer 124, Est GFR (MDRD) Non-Af 103, BUN/Creatinine Ratio 16.7, Glucose 123 H, Calcium 8.4 L, Total Bilirubin 1.50 H, Direct Bilirubin 0.25, AST 109 H, ALT 28, Alkaline Phosphatase 68, Troponin I 16.600 H*, Total Protein 7.7, Albumin 3.6, Globulin 4.1, Triglycerides 178, Cholesterol 212 H, LDL Cholesterol 136 H, VLDL Cholesterol 36, HDL Cholesterol 40, TSH 0.83 11/05/19 05:08: PT 13.4, INR 1.0, APTT 22.9 L Active Medications Albuterol Sulfate (Ventolin Aerosols) 2.5 mg INHALATION Q2H PRN PRN PRN Reason: SOB/Wheezing Aspirin (Ecotrin) 81 mg PO DAILY@0800 [facility] Last Admin: 11/05/19 05:59 Dose: 81 mg Documented by: Carvedilol (Coreg) 6.25 mg PO BID [facility] Last Admin: 11/05/19 05:59 Dose: 6.25 mg Documented by: Enoxaparin Sodium (Lovenox) 40 mg SC DAILY [facility] Last Admin: 11/04/19 22:57 Dose: Not Given Documented by: Famotidine (Pepcid) 20 mg PO BID [facility] Last Admin: 11/04/19 22:13 Dose: 20 mg Documented by: Glucagon () 1 mg IM .X1 PRN PRN Reason: Hypoglycemia Guaifenesin (Robitussin) 10 ml PO Q4H PRN PRN PRN Reason: COUGH Nicardipine HCl 25 mg/ Sodium (Chloride) 250 mls @ 50 mls/hr CONT INF .Q5H [facility]; Protocol Last Titration: 11/05/19 06:00 Dose: 7.5 mg/hr, 75 mls/hr Documented by: Lactated Ringer's () 1,000 mls @ 30 mls/hr IV .[id number] [facility] Last Admin: 11/04/19 16:02 Dose: 30 mls/hr Documented by: Dextrose (Dextrose 10%-Water) 250 mls @ 999 mls/hr IV .Q16M PRN; Protocol PRN Reason: HYPOGLYCEMIA Potassium Chloride () 10 meq in 100 mls @ 100 mls/hr IV BOLUS Q1H [facility] Stop: 11/05/19 11:14 Losartan Potassium (Cozaar) 50 mg PO DAILY [facility] Last Admin: 11/05/19 05:59 Dose: 50 mg Documented by: Morphine Sulfate () 2 mg IV Q3H PRN PRN PRN Reason: Pain Score 6-10/10 Last Admin: 11/05/19 04:03 Dose: 2 mg Documented by: Nitroglycerin (Nitrostat) 0.4 mg SUBLINGUAL Q5M PRN PRN Reason: CARDIAC/CHEST PAIN Ondansetron HCl (Zofran) 4 mg IV Q8H PRN PRN PRN Reason: NAUSEA/VOMITING Last Admin: 11/04/19 23:27 Dose: 4 mg Documented by: Senna/Docusate Sodium (Senokot-S, Page-Colace) 2 tablet PO BID PRN PRN Reason: Constipation Sodium Chloride () 10 - 40 ml IV UD PRN PRN Reason: SALINE FLUSH Code Visit Inpatient E&M: 04280 Subs Hosp L3
[2019-11-05] MEDS: Potassium Chloride 10mEq/100mL 10 MEQ/100 ML IV.SOLN. 100 MEQ IV BOLUS ×4 (08:52→12:02)
--- NOTE | 2019-11-05 10:13 | PCM.PN.CARD ---
Subjectve: Still has headache. No significant chest pain. Her troponin however went up to 16. Objective: Vital Signs Temp Pulse Resp BP Pulse Ox 98.8 F 72 20 H 136/80 H 100 11/05/19 00:00 11/05/19 10:00 11/05/19 10:00 11/05/19 10:00 11/05/19 10:00 Oxygen Flow Rate (L/min) 2 Oxygen Delivery Method Room Air Weight: 185 lb 13.595 oz Body Mass Index (BMI) 31.8 Intake and Output for Last 24 Hours 11/03/19 11/04/19 11/05/19 23:59 23:59 23:59 Intake Total 465.41 / 546.66 858.75 / 858.75 Output Total 300 / 300 Balance 465.41 / 246.66 558.75 / 558.75 General: Awake, Alert, Oriented x 3 HEENT: Atraumatic Oral: Moist Mucosa Neck: Supple Lungs: Clear to auscultation Cardiovascular: Regular Rhythm Abdomen: Soft Extremities: No edema Skin: No Rashes Psych/Mental Status: Appropriate 11/04/19 09:55: Sodium 138, Potassium 3.6, Chloride 106, Carbon Dioxide 27.0, Anion Gap 5, BUN 16, Creatinine 0.88, Est GFR (MDRD) Af Amer 89, Est GFR (MDRD) Non-Af 73, BUN/Creatinine Ratio 18.1, Glucose 108 H, Calcium 9.4, Troponin I 0.296 H 11/04/19 09:55: Magnesium 2.2 11/04/19 17:45: Troponin I 6.950 H* 11/04/19 21:33: Troponin I 11.500 H* 11/04/19 23:33: Troponin I 12.900 H* 11/05/19 05:08: WBC 12.5 H, RBC 4.79, Hgb 14.0, Hct 40.9, MCV 85.4, MCH 29.2, MCHC 34.2, Plt Count 232, MPV 9.3, Immature Gran % (Auto) 0.400, Neut % (Auto) 81.5 H, Lymph % (Auto) 11.6 L, [place] % (Auto) 5.8, Eos % (Auto) 0.5, Baso % (Auto) 0.2, Absolute Neuts (auto) 10.2 H, Nucleated RBC % 0 11/05/19 05:08: Sodium 138, Potassium 3.4 L, Chloride 107, Carbon Dioxide 23.0, Anion Gap 8, BUN 11, Creatinine 0.66, Est GFR (MDRD) Af Amer 124, Est GFR (MDRD) Non-Af 103, BUN/Creatinine Ratio 16.7, Glucose 123 H, Calcium 8.4 L, Total Bilirubin 1.50 H, Direct Bilirubin 0.25, Troponin I 16.600 H*, Triglycerides 178, Cholesterol 212 H, LDL Cholesterol 136 H, VLDL Cholesterol 36, HDL Cholesterol 40 11/05/19 05:08: PT 13.4, INR 1.0, APTT 22.9 L Rhythm: EKG: ECHO: Stress Test: Cardiac Cath: PCI: CT Surgery: Holter monitor: EPS: PPM: CXR: Chest CT Scan: Medical Necessity - Tobacco Use Smoking Status: Never smoker Tobacco Use: Non-smoker Assessment/Plan 1. Chest pain: Appears to be related to a combination of coronary vasospasm secondary to the additional dose of Imitrex and/or hypertensive urgency due to the higher dose of Imitrex as well. However the troponin has gone up significantly. At this point will be reasonable to proceed with coronary angiography. Risks and benefits explained to the patient. Patient is willing to proceed. I think it will be reasonable to look for alternatives to Imitrex for this patient. If there is no ideal alternative available then patient can potentially be on Imitrex as she has tolerated this for several years but should not take more than 50 mg in a 24-hour period. 2. Hypertensive urgency: This also appears to be related to the higher than accustomed dose of Imitrex. However patient apparently has had blood pressures in the 140s over 80s to 90 in the past. I agree with keeping her on carvedilol 6.25 mg p.o. twice daily. Unfortunately patient is having headache still and this could be contributing further to her elevated blood pressure as well. If her blood pressure continues to remain elevated enough to require nicardipine drip then we will go up on the Coreg probably this evening. Thank you very much for letting us participate in the care of this patient. We will continue to follow her along with you.
[2019-11-05] MEDS: Ondansetron 4 MG/2 ML Vial IV ×2 (10:23→18:21)
[2019-11-05 10:28] LABS: Internal QC Validated? YES +Cl - CLEAR BKGD; Pregnancy, Urine Negative Negative
--- NOTE | 2019-11-05 10:46 | CASEMGMT ---
RN CM Note: [facility] lookup for tertiary care. [facility], [facility], [facility], [facility], Torrie Jaeger, [facility]. Karol PENAN RN ACM
--- NOTE | 2019-11-05 10:56 | CASEMGMT ---
RN CM Assessment Note Presentation: HTN urgency, NSTEMI Intro role of CM and purpose of RN CM assessment. Demographics, PCP and Pharmacy verified. Pt sleepy, able to participate but does not elaborate. No dc needs identified @ this time. Pt is scheduled for heart cath. Insurance review for tertiary care documented if transfer would be required. PCP: Dr. Akbar Specialists: Dr. Franco Preferred Pharmacy: [facility] Insurance: [facility] Prescription Benefit: yes LNOK : Sisters Cassidy Crandall and Mary Renteria Living Arrangements: Lives independently in home. States no care needs. Independent in ADLs/IADL's Transportation: drives DME: none HHC/SNF: none Patient DC goals: Home DC PLAN: anticipate home on discharge. Pt denies any concerns. RN CM advised to contact cm for any concerns/needs that may arise. Karol ESTRADA RN ACM
--- NOTE | 2019-11-05 12:00 | NURSING ---
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
--- NOTE | 2019-11-05 13:55 | CT_ITS ---
STUDY: CT BRAIN WITHOUT CONTRAST REASON FOR EXAM: Female, 43 years old. PT STATED HEADACHE, HTN, HEART CATH TODAY RADIATION DOSAGE (If Supplied By Facility): CTDIvol = ( ) mGy, DLP = ( ) mGycm COMPARISON: None. TECHNIQUE: A CT scan of the head was performed without IV contrast in the axial plane. It must be noted that the patient had a recent cardiac catheterization just prior to the study and still residual contrast material was noted in the major arteries and veins. Coronal and sagittal reconstruction images were also obtained. This exam was performed according to our departmental dose-optimization program, which includes automated exposure control, adjustment of the mA and/or kV according to patient size and/or use of iterative reconstruction technique. FINDINGS: The pradeep, medulla, and cerebellum appear to be normal. The ventricles and sulci are normal in size and shape. The basal ganglia appear to be normal. The inner and outer tables of the skull are intact. The frontal, ethmoid, maxillary, and sphenoid sinuses are normal. The mastoid air cells are normal. CT/Brain/Head without Contrast IMPRESSION: Normal CT scan of the head. Electronically Signed: Teo Mueller, at 15:22 EST Tel , Service support ,
--- NOTE | 2019-11-05 14:25 | CL.D_ITS ---
Patient Name: GLENNA ANDRADE Study Date: 11/05/2019 Performing: Jonnie Franco MD Ht: 64 inches 163 cm : 1975 Wt: 185.4 lbs 84 kg Age: 43 Gender: female BSA: 1.9 PROCEDURE(S) PERFORMED [id number]-BIQ/COR/LV CLINICAL PROFILE AND INDICATIONS Indications: ACS <= 24 hrs Heart Failure: None Stress/Imaging Stress/Image Study Performed: No CAD Presentations: Non-STEMI. Symptom onset Date/Time: 11/04/19 Time Not Available CONCLUSIONS Non obstructive coronary arteries. LVEF is 50% with mid inferior hypokinesis. No significant or MR . RECOMMENDATIONS Medical therapy with ASA, Statin and BB. DESCRIPTION OF PROCEDURE The patient arrived to the procedure lab. The risks and benefits of the procedure as well as a full d escription of our services here and current unavailability of surgical backup were fully explained to the patient and/or their significant other prior to the catheterization. The Timeout was completed, verifying the correct patient and procedure. The patient's procedural site was prepped and draped in the usual fashion. Local anesthetic was given subcutaneously to right radial region with Lidocaine 2% . Using a modified Seldinger technique, arterial access was obtained via the right radial artery, a 6 Fr sheath was inserted. Left Coronary Artery selective angiography was performed in multiple views u sing a 5 Fr. JL3.5 catheter. Left Ventriculography was performed in HUGHES projection using a 5 Fr.. LV to AO pullback pressures were then recorded. Right Coronary Artery selective angiography was then per formed in multiple views using a 5 Fr. JR 4 catheter. Right Coronary Artery selective angiography was then performed in multiple views using a 5 Fr. JR 4 catheter.The arterial sheath was pulled and a TR Band was applied for hemostasis. 16cc air CORONARY ANGIOGRAPHY DOMINANCE: Right Dominant LEFT HEART ASSESSMENT Left Ventricular Ejection Fraction: by LV Gram 50 % Hypokinesis of the mid inferior wall LEFT MAIN: 10-20 % Stenosis LEFT ANTERIOR DESCENDING ARTERY: Mild luminal irregularities CIRCUMFLEX ARTERY: Mild luminal irregularities RIGHT CORONARY ARTERY: Mild luminal irregularities. In some views there is a question whether distal RPDA is occluded. However, it is likely just due to tortuousity in this region. VALVE FINDINGS: No Aortic Valve Stenosis No Mitral Insufficency COMPLICATIONS No Complications PROCEDURE MEDICATIONS Versed 1 mg IV Fentanyl 50 mcg IV Fentanyl 50 mcg IV Oxygen: 2 L/min via nasal cannula Heparin 3000 unit(s) IV 11/05/2019 13:10:55 Nitro given IA 11/05/2019 12:58:15 Nitro 200 mcg IC 11/05/2019 13:17:14 Verapamil 2.5mg, 200mg Nitro given IA 11/05/2019 12:58:15 Zofran 4 mg IV 11/05/2019 13:43:07 SUMMARY OF HEMODYNAMIC DATA Time AIR REST ECG 12:27:54 LV 134/-3, 11 13:12:43 LV 133/-2, 11 13:12:50 LV 132/-2, 11 13:13:42 LVp 117/1, 10 13:13:55 AOp 130/77 (101) 13:14:00 Signed By Jonnie Franco MD On 11/05/2019 2:24:31 PM Jonnie Franco MD
[2019-11-05] MEDS: 0.9% Normal Saline 1,000 ML 60 ML IV (14:26)
--- NOTE | 2019-11-05 14:30 | NURSING ---
1430 titration not done, patient off floor CT
[2019-11-05] MEDS: hydroCHLOROthiazide 25 MG Tablet PO (16:23)
[2019-11-05] MEDS: Atorvastatin Calcium 80 MG Tablet PO (16:23)
[2019-11-05] MEDS: Famotidine 20 MG Tablet PO (21:35)
[2019-11-06] VITALS (8 sets, daily range): BP systolic 134–159; BP diastolic 72–105; PULSE 66–76; RESP 12–18; TEMP 36.6–37.3; O2SAT 95–99
[2019-11-06] MEDS: Morphine 2 MG/ML Syringe IV (03:29)
[2019-11-06 03:56] LABS: Absolute Lymphocyte Count 2.25 X10^3/uL (0.83-4.51); Basophil# 0.02 X10^3/uL; Basophil% 0.2 % (0-1); Eosinophils% 0.8 % (0-5); Hematocrit 42.3 % (37-47); Hemoglobin 14.4 g/dL (12.0-15.0); Lymphocyte # 2.25 X10^3/ul (4.0); Lymphocyte % 16.9 % (19-41); Mean Corpuscular Hgb 29.1 pg (27.0-32.0); Mean Corpuscular Volume 85.6 fL (81-99); Mean Platelet Vol. 9.6 fl (6.2-12.0); Monocyte# 0.92 X10^3/uL; Monocyte% 6.9 % (0-10); NRBC Flagged by Analyzer 0 % (0-5); Platelet Count 276 K/mm3 (150-450); RBC Distribution Width SD 40.3 fl (35.1-43.9); Red Blood Count 4.94 M/mm3 (4.2-5.4); White Blood Count 13.3 K/mm3 (4.4-11.0)
[2019-11-06 04:24] LABS: Anion Gap 10 (5-15); BUN 11 mg/dL (7-18); Calcium,Total 8.8 mg/dL (8.5-10.1); Chloride 103 mmol/L (98-107); Creatinine, Serum 0.78 mg/dL (0.55-1.02); EST Glomerular Filtration Rate 84 mL/min (>60); Est Glom Filt Rate - Afr Amer 102 mL/min (>60); Estimated Creatinine Clearance 78.65 ml/min; Glucose 122 mg/dL (74-106); Potassium 3.2 mmol/L (3.5-5.1); Sodium Level 137 mmol/L (136-145)
--- NOTE | 2019-11-06 05:55 | EKG12_ITS ---
Test Reason : CP Blood Pressure : / mmHG Vent. Rate : 068 BPM Atrial Rate : 068 BPM P-R Int : 182 ms QRS Dur : 104 ms QT Int : 458 ms P-R-T Axes : 045 -45 -73 degrees QTc Int : 487 ms Normal sinus rhythm Left anterior fascicular block Voltage criteria for left ventricular hypertrophy ST & T wave abnormality, consider inferior ischemia ST & T wave abnormality, consider anterolateral ischemia Prolonged QT Abnormal ECG Confirmed by OLIVE MAGAÑA, CLAIR ([id number]), writer editor JOEY DORANTES ([id number]) on 11/10/2019 2:00:54 PM Referred By: Iban Zarate Confirmed By:CLAIR SCHAEFER MD
[2019-11-06] MEDS: Carvedilol 6.25 MG Tablet PO (09:30)
[2019-11-06] MEDS: Aspirin E.C. 81 MG Tablet PO (09:30)
[2019-11-06] MEDS: Losartan Potassium 50 MG Tablet PO ×2 (09:31→11:01)
[2019-11-06] MEDS: hydroCHLOROthiazide 25 MG Tablet PO (09:31)
[2019-11-06] MEDS: Famotidine 20 MG Tablet PO (09:32)
--- NOTE | 2019-11-06 10:15 | DCINST_ITS ---
- Discharge Diagnoses Current Active Problems: Current Active and Chronic Problems History of left heart catheterization (Acute ~11/05/19) Midsternal chest pain (Acute) Elevated troponin I level (Acute) Hypertensive emergency (Acute) You will use the following diet at home:: Cardiac Your food should be the consistency of: Regular Discharge Activity: May Not Drive Additional Instructions: Do not use right hand, right radial artery access car diac cath for next 3 days. Allergies/Adverse Reactions: Allergies acetaminophen [From Midrin] Allergy (Verified 11/04/19 09:32) Other codeine Allergy (Verified 11/04/19 09:32) Unknown dichloralphenazone [From Midrin] Allergy (Verified 11/04/19 09:32) Other isometheptene mucate [From Midrin] Allergy (Verified 11/04/19 09:32) Other Medications to take at Discharge Albuterol Inhaler [Ventolin Hfa] 2 puff INHALATION Q6H PRN PRN 10/03/13 Fluticasone/Salmeterol [Advair 250/50 Mcg Diskus] 1 puff INHALATION BID 10/03/13 Aspirin E.C. [Ecotrin] 81 mg PO DAILY@0800 #30 tab 11/06/19 Carvedilol [Coreg (Beta Ginny)] 6.25 mg PO BID #60 tab 11/06/19 Losartan/Hydrochlorothiazide [Losartan-Hctz 100-12.5 mg Tab] 1 ea PO DAILY #30 tab 11/06/19 The following prescriptions were given: Carvedilol [Coreg (Beta Ginny)] 6.25 mg PO BID #60 tab Transmission Status: Pending to [email or web address] #30 - [place] Aspirin E.C. [Ecotrin] 81 mg PO DAILY@0800 #30 tab Transmission Status: Pending to [email or web address] #[facility] - [place] Losartan/Hydrochlorothiazide [Losartan-Hctz 100-12.5 mg Tab] 1 ea PO DAILY #30 tab Transmission Status: Pending to [email or web address] - [facility] Primary Care Physician: Amelia Akbar DO [Primary Care Provider] - Please follow up with your Primary Care Physician in: In 1 to 2 weeks for control of hypertension Test Results: Test results from this visit will be discussed in further detail at your follow- up appointment, if applicable. Please Follow Up With: Moreno White MD When: in 1-2 weeks
--- NOTE | 2019-11-06 10:16 | DS.PCM_ITS ---
Discharge Date and Diagnosis Date of Admission: 11/04/19 Date of Discharge: 11/06/19 - Primary Discharge Diagnosis Active and Suspected Problems History of left heart catheterization (Acute ~11/05/19) Midsternal chest pain (Acute) Elevated troponin I level (Acute) Hypertensive emergency (Acute) Hospital Course and Treatment Summary of Care Provided: [] The patient is a 43 year old F with history of migraine headache and asthma came to ER with chest tightness, troponin elevated suggestive of non-STEMI In ED, triage vitals shows blood pressure 217/131, heart rate 95, pulse ox 100% on room air. EKG shows normal sinus rhythm, LAD, LVH with repolarization abnormality and nonspecific ST-T changes. Previous EKG of 2007 did not had LAD, LVH or repolarization abnormality. Dynamic Balancer Set Up Worker is consulted. Patient was started on nicardipine drip and admitted in ICU. 1. Hypertensive emergency with atypical chest pain/non-STEMI: Patient is being admitted in ICU. First troponin 0 0.296 serial troponin enzymes. Started on nicardipine drip. Patient had aspirin in ER. Started on aspirin and low-dose Coreg. Mild leukocytosis probably secondary to headache or unclear. No fever. Blood pressure is controlled, will try to taper down to completely discontinue. Nicardipine drip was discontinued. Oral antihypertensive medications resumed. Patient on losartan HCTZ 100/12.5 mg daily and carvedilol 6.25 mg twice daily. Prescription sent to the patient's pharmacy. 2. NSTEMI with Abnormal EKG possible inferolateral ischemia: Showing changes of LVH with repolarization abnormality. Repeat EKG done in the morning shows normal sinus rhythm with deep T wave inversion in V3 to V6 and inferior leads. Similar LVH with repolarization abnormality. Overall consistent with inferior lateral ischemia. Troponin elevated, max 16 and then came down 12.5. Patient had cardiac cath which showed EF 50% by LV gram. Hypokinesis of mid inferior wall. No significant obstructive coronary artery disease found. Left main 10 to 20%. Dynamic Balancer Set Up Worker recommended to continue baby aspirin 81 mg daily as distal RPDA view was not clear. 3. Migraine headache on Imitrex:Not a good candidate for Imitrex going forward. It has side effect/complaint of hypertensive emergency and dissection. Tele-neurologist consult was done. Patient was recommended to take Excedrin or Fioricet for treatment in the meantime. Advised follow-up neurology in 1 to 2 weeks. There was strong recommendation not to take triptans. Imitrex was discontinued. 4. Dyslipidemia: Total cholesterol 212, LDL 136, HDL 40. High intensity statin. 4. Chronic asthma: Stable. On albutero INHALER as needed. Can have home inhaler, Advair 5. DVT prophylaxis: Lovenox 40 mG subcu daily Discharge medication reconciliation done. Discharge follow-up instructions completed. Discharge process discussed with the patient and all questions were answered to patient's satisfaction. Prescriptions were sent to the patient's pharmacy. Discharge meds discussed with the patient Total time spent, exact 35 minutes on discharge meds reconciliation, examination, coordination of care with nurses and ancillary staff, review of imaging and blood test and discussion with the patient on follow-up instructions - Physical Exam Vitals/I&O's: Vital Signs Temp Pulse Resp BP Pulse Ox 97.8 F 75 14 155/105 H 95 11/06/19 09:27 11/06/19 09:27 11/06/19 09:27 11/06/19 09:27 11/06/19 09:27 Oxygen Flow Rate (L/min) 2 Oxygen Delivery Method Room Air Weight: 185 lb 13.595 oz Body Mass Index (BMI) 31.8 Intake and Output for Last 24 Hours 11/04/19 11/05/19 11/06/19 23:59 23:59 23:59 Intake Total 465.41 / 546.66 2592.25 / 3072.25 480 / 480 Output Total 300 / 300 Balance 465.41 / 246.66 2292.25 / 2772.25 480 / 480 Laboratory Results 11/05/19 10:20: Urine Test Negative 11/06/19 03:35: WBC 13.3 H, RBC 4.94, Hgb 14.4, Hct 42.3, MCV 85.6, MCH 29.1, MCHC 34.0, RDW Std Deviation 40.3, RDW Coeff of Melanie 13.0, Plt Count 276, MPV 9.6, Immature Gran % (Auto) 0.200, Neut % (Auto) 75.0 H, Lymph % (Auto) 16.9 L, [place] % (Auto) 6.9, Eos % (Auto) 0.8, Baso % (Auto) 0.2, Absolute Neuts (auto) 10.0 H, Absolute Lymphs (auto) 2.25, Nucleated RBC % 0 11/06/19 03:35: Sodium 137, Potassium 3.2 L, Chloride 103, Carbon Dioxide 24.0, Anion Gap 10, BUN 11, Creatinine 0.78, Estim Creat Clear Calc 78.65, Est GFR (MDRD) Af Amer 102, Est GFR (MDRD) Non-Af 84, BUN/Creatinine Ratio 14.0, Glucose 122 H, Calcium 8.8, Troponin I 12.500 H* Current Medications Albuterol Sulfate (Ventolin Aerosols) 2.5 mg INHALATION Q2H PRN PRN PRN Reason: SOB/Wheezing Aspirin (Ecotrin) 81 mg PO DAILY@0800 [facility] Last Admin: 11/06/19 09:30 Dose: 81 mg Documented by: Atorvastatin Calcium (Lipitor) 80 mg PO QHS [facility] Last Admin: 11/05/19 16:23 Dose: 80 mg Documented by: Carvedilol (Coreg) 6.25 mg PO BID [facility] Last Admin: 11/06/19 09:30 Dose: 6.25 mg Documented by: Enoxaparin Sodium (Lovenox) 40 mg SC DAILY [facility] Last Admin: 11/06/19 09:31 Dose: Not Given Documented by: Famotidine (Pepcid) 20 mg PO BID [facility] Last Admin: 11/06/19 09:32 Dose: 20 mg Documented by: Glucagon () 1 mg IM .X1 PRN PRN Reason: Hypoglycemia Guaifenesin (Robitussin) 10 ml PO Q4H PRN PRN PRN Reason: COUGH Hydrochlorothiazide (Hctz) 25 mg PO DAILY [facility] Last Admin: 11/06/19 09:31 Dose: 25 mg Documented by: Dextrose (Dextrose 10%-Water) 250 mls @ 999 mls/hr IV .Q16M PRN; Protocol PRN Reason: HYPOGLYCEMIA Sodium Chloride () 1,000 mls @ 0 mls/hr IV .Q0M [facility] Ibuprofen (Motrin) 600 mg PO Q6 PRN PRN Reason: HEADACHE Losartan Potassium (Cozaar) 100 mg PO DAILY [facility] Morphine Sulfate () 2 mg IV Q3H PRN PRN PRN Reason: Pain Score 6-10/10 Last Admin: 11/06/19 03:29 Dose: 2 mg Documented by: Nitroglycerin (Nitrostat) 0.4 mg SUBLINGUAL Q5M PRN PRN Reason: CARDIAC/CHEST PAIN Ondansetron HCl (Zofran) 4 mg IV Q8H PRN PRN PRN Reason: NAUSEA/VOMITING Last Admin: 11/05/19 18:21 Dose: 4 mg Documented by: Senna/Docusate Sodium (Senokot-S, Page-Colace) 2 tablet PO BID PRN PRN Reason: Constipation Sodium Chloride () 10 - 40 ml IV UD PRN PRN Reason: SALINE FLUSH Discharge Activity: May Not Drive Home Medications: Medications to take at Discharge Albuterol Inhaler [Ventolin Hfa] 2 puff INHALATION Q6H PRN PRN 10/03/13 Fluticasone/Salmeterol [Advair 250/50 Mcg Diskus] 1 puff INHALATION BID 10/03/13 Aspirin E.C. [Ecotrin] 81 mg PO DAILY@0800 #30 tab 11/06/19 Carvedilol [Coreg (Beta Ginny)] 6.25 mg PO BID #60 tab 11/06/19 Losartan/Hydrochlorothiazide [Losartan-Hctz 100-12.5 mg Tab] 1 ea PO DAILY #30 tab 11/06/19 Following Prescrptions Were Given to Patient: Carvedilol [Coreg (Beta Ginny)] 6.25 mg PO BID #60 tab Transmission Status: Received by [facility] #30 - [place] Aspirin E.C. [Ecotrin] 81 mg PO DAILY@0800 #30 tab Transmission Status: Received by [facility]30 - [facility] Losartan/Hydrochlorothiazide [Losartan-Hctz 100-12.5 mg Tab] 1 ea PO DAILY #30 tab Transmission Status: Received by [facility] - [facility] Primary Care Physician: Amelia Akbar DO [Primary Care Provider] - Please follow up with your Primary Care Physician in: In 1 to 2 weeks for control of hypertension Please Follow Up With: Moreno White MD When: in 1-2 weeks Medical Necessity - Tobacco Use Smoking Status: Never smoker Tobacco Use: Non-smoker Meaningful Use Info Meaningful Use Diagnoses (Choose all that apply): None applicable Code Visit Inpatient E&M: 58760 Disch Hosp
[2019-11-06] MEDS: Ibuprofen 600 MG Tablet PO (11:00)
--- NOTE | 2019-11-08 15:28 | CASEMGMT ---
Case Management DC F/u Call: DC Date: 11/06/2019 DC Diagnosis: History of left heart catheterization (Acute ~11/05/19) Midsternal chest pain (Acute) Elevated troponin I level (Acute) Hypertensive emergency (Acute) DC disposition: Home Lace/Strata: 06/10 Called patient listed cell phone on demographics, no answer, VM did not identify correct patient, therefore no VM left. Venkata Obando RNCM
== END 2019-11-06 12:45 | disposition home or self-care (01) | DRG 281 ==
LOC: ED 11:09 → ICU 11:20 → PCU 11-06 06:24
PROVIDERS: Internal Medicine Cardiovascular Disease; Specialist; Admitting Provider Internal Medicine; Emergency Provider Emergency Medicine; PCP Internal Medicine; Referring Provider Internal Medicine; Visit Provider Internal Medicine
DX: I21.4 Non-ST elevation (NSTEMI) myocardial infarction (principal); I16.1 Hypertensive emergency; G43.909 Migraine, unspecified, not intractable, without status migrainosus; Z87.891 Personal history of nicotine dependence; J45.909 Unspecified asthma, uncomplicated; E66.9 Obesity, unspecified; Z79.51 Long term (current) use of inhaled steroids; Z79.899 Other long term (current) drug therapy; Z68.32 Body mass index [BMI] 32.0-32.9, adult; T39.8X5A Adverse effect of other nonopioid analgesics and antipyretics, not elsewhere classified, initial encounter; I25.10 Atherosclerotic heart disease of native coronary artery without angina pectoris; D72.829 Elevated white blood cell count, unspecified; E78.5 Hyperlipidemia, unspecified
CPT/HCPCS: 36415; 70450; 71045; 80048; 80061; 80076; 81025; 83735; 84443; 84484; 85025; 85610; 85730; 87641; 93005; 93306; 93458; 97802; 99152; 99153; 99251; 99285; J7030; J7050; J7120; A4216; C1769; C1894; C8929; G0463; J2405; Q9967

== ENCOUNTER 2021-01-04 09:01 | Outpatient (RCR) | payer OTHER, SELFPAY ==
[2019-11-04 11:37] VITALS: BMI 31.8
== END 2021-02-13 23:59 ==
LOC: IMMUN 09:01
PROVIDERS: PCP Internal Medicine; Referring Provider Family Medicine; Visit Provider Family Medicine
DX: Z23 Encounter for immunization (principal)
CPT/HCPCS: 0001A; 0002A; 91300

== ENCOUNTER 2022-06-24 10:59 | Outpatient (RCR) | payer SELFPAY, OTHER ==
--- NOTE | 2022-06-24 12:03 | HP.PTEVAL_ITS ---
Patient's Visit Information GLENNA ANDRADE is a 46 year old F referred to Physical Therapy by Dr. Amelia Reyes DO with a diagnosis of LBP WITH RADICULOPATHY. Date of Evaluation: 06/24/22 Physical Therapist: Saray Villalba PT, Cert MDT - Visit Plan Frequency: 2x /Week Duration: 4-6 Weeks Plan: CONSIDER AQUATIC THERAPY IF NEEDED BUT PATIENT DISLIKES THE WATER SO WE WILL START ON LAND AND DECIDE IF BENEFICIAL LATER. POSTURE CORRECTION/STRENGTHENING, INSTRUCTION IN APPROPRIATE BODY MECHANICS AND ACTIVITY MODIFICATIONS. DLS STARTING WITH A NEUTRAL SPINE PROGRESSING ROM TOLERATED. ELIOT LE ROM, STRETCHING AND STRENGTHENING. HEP INSTRUCTION. 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 A LOT OF TYPING. LIKES TO HIKE 4-10 MILES. Disability: NO. Present symptoms: RIGHT LOW BACK PAIN, RIGHT BUTTOCK PAIN, RIGHT THIGH, LEG AND FOOT PAIN. PATIENT DENIES RIGHT LE NUMBNESS AND TINGLING. SHE DESCRIBES THE PAIN ELECTRICAL AND SHOOTING THOUGH. PATIENT DENIES LLE SX'S. Present since: ABOUT A YEAR AGO BUT WORSE THE LAST MONTH. Pain Scale: WORST 6/10, LEAST 0/10. Currently: 4/10. Commenced as a result of: NO APPARENT REASON OTHER THAN REACHING UP TO GET SOMETHING OFF A SHELF. NO APPARENT REASON FOR FLARE UP LATELY. Symptoms at onset: SHOOTING PAIN DOWN R LEG. Worse: PROLONGED SITTING, TRYING TO LIFT R LEG, BENDING, TRYING TO PICK THINGS UP OFF THE FLOOR. Better: LAYING DOWN, WALKING, MUSCLE RELAXER, BIOFREEZE, ROLLING STICK, CALF STRETCHING. Disturbed sleep: YES. Previous history/Previous treatment/Treatment this episode: CONSULT WITH HARVEY RIOS MUSCLE RELAXDAPHNEY AND WAS GIVEN SOME EX'S ABOUT A YEAR AGO. WENT BACK TO DR. REYES ABOUT A WK OR SO AGO BECAUSE IT GOT WORSE. SHE REPORTS HER EX'S INCLUDED CALF STRETCHING, LUNGES AND KICKING OUT IN SITTING. NO BACK SURGERY. NO PASTOR'S. SHE REPORTS SHE HAS GONE TO A CHIROPRACTOR MOST OF HER LIFE FOR MAINLY MIGRAINES BUT ALSO GOT LOW BACK ADJUSTMENTS AND ACUPUNCTURE. HAS NOT BEEN TO CHIROPRACTOR FOR ABOUT 3 YEARS DUE TO INSURANCE. Coughing/sneezing/straining: POSITIVE. Gait: LIMPING ON RIGHT LEG. NO FALLS. Bowel or Bladder Dysfunction: NO. Accidents: NO. Unexplained weight loss: NO. Imaging: NONE RECENT. PMH/Recent major surgery: MIGRAINES, ASTHMA - Objective Sitting/Standing Posture: POOR. FH. ROUNDED SHLDS. NO RELEVENT LATERAL LUMBAR SHIFT. Active Correction of posture: Other Observations: INDEP GAIT INTO PT WITH MILD LIMP ON RIGHT LE. INDEP TRANSFER SIT TO STAND WITHOUT UE ASSIST. Sensory deficit: ELIOT LE LIGHT TOUCH SENSATION GROSSLY INTACT AND SYMMETRICAL. ROM deficit: DECREASED RIGHT HS, GASTROC, HIP EXTENSION, HIP IR AND ER COMPARED TO THE LEFT. Motor deficit: ELIOT LE STRENGTH GROSSLY 5/5 WITH MMT'ING EXCEPT RIGHT HIP 4-/5. Dural Signs: POSITIVE RIGHT LE. Lumbar mvmt loss: flex - MOD TO OK. ext - MOD. R SG - MOD. L SG - MOD. PATIENT C/O INCREASED RIGHT LB AND BUTTOCK PAIN WITH LUMBAR FLEXION AND EXTENSION TESTING. PATIENT HAS MORE PAIN WITH FLEXION THAN EXTENSION TESTING. Core strength: POOR. Palpation: TENDERNESS WITH LIGHT PALPATION OF RIGHT LOW BUTTOCK AND LATERAL HIP AND PROXIMAL THIGH REGIONS. - Balance/Special Test Scores Oswestry Low Back Score: 15 - Goals Goal 1:: DECREASE C/O R LOW BACK AND R LE SX'S. Goal Time Frame: 4-6 Weeks Goal 2:: IMPROVE LIFTING, SITTING, STANDING, SLEEP, SOCIAL LIFE, TRAVEL, WORK AND HOMEMAKING FUNCTION Goal Time Frame: 4-6 Weeks Goal 3:: INSTRUCT IN PROPHYLAXIS Goal Time Frame: 4-6 Weeks - Anticipated Interventions Patient/Client Instruction: Educate patient on: Condition, Plan of Care, Risk Factors For the Purpose of:: To improve self management Therapeutic Exercise to Include: Strength training, Body mechanics, Postural training, Flexibilty training, Neuromotor development, In an aquatic setting, Dynamic Lumbar Stabilization For the Purpose of:: To decrease pain, To increase ROM, To improve muscle performance and motor function, To increase tolerance to activity/condition/position, To improve ability of physical actions for home/community/work/leisure Thank you for the opportunity to evaluate your patient. For Medicare and Medicare HMO plans, please review the plan of care and approve it. It will need to be FAXED BACK to us at [phone] for Medicare purposes. For Medicare only, by signing this I certify the plan of care. Please let me know if there are questions or concerns regarding this plan of care. Physician Signature: Date:
--- NOTE | 2022-09-06 16:29 | HP.PT.NRP ---
GLENNA ANDRADE was seen in my office for initial evaluation on 06/24/22. The following Plan of Care was established for this patient: Initial Frequency: 2x /Week Initial Duration: 4-6 Weeks Patient/Client Instruction: Educate patient on: Condition, Plan of Care, Risk Factors For the Purpose of:: To improve self management Therapeutic Exercise to Include: Strength training, Body mechanics, Postural training, Flexibilty training, Neuromotor development, In an aquatic setting, Dynamic Lumbar Stabilization For the Purpose of:: To decrease pain, To increase ROM, To improve muscle performance and motor function, To increase tolerance to activity/condition/position, To improve ability of physical actions for home/community/work/leisure This patient was last seen in our office 06/24/22. Pertinent comments regarding their Physical therapy will appear below: This patient has not returned to Physical Therapy and is appropriate to return to MD for further follow-up as needed. At this point I will be discontinuing this patient from physical therapy. I would be happy to see this patient again in the future if found appropriate by the physician. Thank you! Saray Villalba, PT, Cert MDT Balance/Gait/Functional tests - Balance/Special Test Scores Oswestry Low Back Score: 15
== END 2022-06-24 19:00 | disposition home or self-care (01) ==
LOC: PT 10:59
PROVIDERS: PCP Internal Medicine; Referring Provider Internal Medicine; Visit Provider Internal Medicine
DX: M54.16 Radiculopathy, lumbar region (principal)
CPT/HCPCS: 97112; 97162

== ENCOUNTER 2023-06-24 20:05 | Emergency (ER) | payer OTHER, SELFPAY ==
[2023-06-24 20:05] VITALS: BP 178/109; PULSE 67; RESP 15; TEMP 36.2; O2SAT 100; BMI 33.5
--- NOTE | 2023-06-24 20:24 | EDS_ITS ---
HPI HPI - GI History of Present Illness Chief Complaint: Abd Pain Informant: patient Narrative Narrative: 47-year-old female presenting to the emergency room with abdominal cramping vomiting and some diarrhea. Symptoms began at 0600 hrs. this morning. She states that she was in [place] where they rented a cabin and cooks most of their meals and drink bottled water. Nobody else is sick. She states that she has been unable to keep any fluids down and is having horrible cramping. She states she must have a fever because she is chilling at times. She feels bloated/distended. When asked to describe the pain she says all of the above. No rashes. No blood in the stool or emesis. No recent medication changes. She denies any bad food exposures. She states that she takes albuterol and medicine for my heart, well high blood pressure. [facility] Medical History Hypertensive emergency Home Medications albuterol sulfate 90 mcg/actuation aerosol inhaler (Ventolin HFA) 2 puff inhalation Q6H PRN PRN Wheezing 10/03/13 [History Last Taken 10/03/13] amlodipine 2.5 mg tablet 2.5 mg PO DAILY 06/24/23 [History Last Taken Unknown] dicyclomine 20 mg tablet 20 mg PO TID #15 tabs 06/24/23 [Rx Last Taken Unknown] ondansetron 4 mg disintegrating tablet 4 mg PO Q6H PRN PRN Nausea #15 tabs 06/24/23 [Rx Last Taken Unknown] propranolol 80 mg capsule,24 hr,extended release 80 mg PO DAILY 06/24/23 [History Last Taken Unknown] Allergy/AdvReac Type Severity Reaction Status Date / Time acetaminophen [From Midrin] Allergy Other Verified 06/24/23 20:09 codeine Allergy Unknown Verified 06/24/23 20:09 dichloralphenazone Allergy Other Verified 06/24/23 20:09 [From Midrin] isometheptene mucate Allergy Other Verified 06/24/23 20:09 [From Midrin] Surgical History History of left heart catheterization (~11/05/19) Social History Smoking Status: Never smoker ROS ROS ED Constitutional Constitutional ED: Reports chills; Denies fever(s) or weight loss Eyes Eyes: Denies change in vision or diplopia ENT ENT ED: Denies ear pain, rhinorrhea or sore throat Cardiovascular Cardiovascular: Denies chest pain, orthopnea, palpitations or racing heartbeat Respiratory/Chest Respiratory/Chest: Reports cough; Denies dyspnea or orthopnea Gastrointestinal Gastrointestinal: Reports abdominal pain, diarrhea, nausea and vomiting Genitourinary Genitourinary ED: Denies dysuria, hematuria or urinary frequency Musculoskeletal Musculoskeletal: Denies arthralgias or myalgias Integumentary Denies abscess or rash Neurologic Neurologic: Denies headache(s) or weakness Psychiatric Psychiatric: Denies anxiety, depression, suicidal ideation or suicidal thoughts Endocrine Endocrinology: Denies polydipsia, polyphagia or polyuria Allergic/Immunologic Allergic/Immunologic ED: Denies mouth swelling, tongue swelling or urticaria EXAM Physical Exam Narrative Exam Narrative: Patient is up pacing in the room. She states she really cannot sit still due to the cramping. Const Vital Signs: 06/24/23 20:05 Temperature 97.1 F L Temperature Source Temporal Pulse Rate 67 Respiratory Rate 15 Blood Pressure 178/109 H Blood Pressure Mean 132 Pulse Ox 100 Oxygen Delivery Method Room Air Positive well nourished, well developed and obese General Appearance ED: well developed Nutritional Appearance: obese HEENT Reports normocephalic, head/scalp atraumatic and moist mucous membranes Eyes PERRL and EOMs intact bilaterally Neck no lymphadenopathy, supple and no JVD Resp normal respiratory effort and clear to auscultation bilaterally Cardio regular rate, regular rhythm and no murmurs GI normal to inspection, nondistended, normoactive bowel sounds Inspection: Negative for abdominal distention Auscultation: normoactive bowel sounds Palpation: soft and tender; Negative for guarding or rebound tenderness present Back/Spine no CVA tenderness and normal ROM Extremity normal to inspection General Extremety ED: Negative for edema General Extremity: Negative for edema Neuro oriented x3 and CN's II-XII intact bilaterally Sensorium / Orientation: alert Motor Exam: strength 5/5 throughout Psych mental status grossly normal Mood & Affect: Negative for depressed or tearful Skin no rashes or lesions noted and no wounds MDM MDM MDM Narrative Medical decision making narrative: Patient received IV fluids Reglan and Benadryl. White count returned at 17.83.8 neutrophils. Hemoglobin 15.2. CO2 is 20 with normal sodium potassium and chloride. Glucose 148. Normal lipase and liver enzymes. Repeat examination the patient still stating that she is having abdominal cramping. She is laying on her stomach but still cannot seem to sit still. She has had her arm bent and the IV has not been flowing. We will need to flush the IV to see if we can get it working again. I can give her an oral dose of Bentyl. The abdomen remains soft and I would not characterize it as surgical. I think most likely she has a viral illness. Lab Data Attestation: I reviewed the patient's lab results. Labs: Laboratory Results - last 24 hr 06/24/23 20:43 WBC 17.8 H RBC 5.20 Hgb 15.2 H Hct 44.0 MCV 84.6 MCH 29.2 MCHC 34.5 RDW Std Deviation 38.0 RDW Coeff of Melanie 12.5 Plt Count 351 MPV 9.4 Immature Gran % (Auto) 0.500 Neut % (Auto) 83.8 H Lymph % (Auto) 11.9 L [place] % (Auto) 3.3 Eos % (Auto) 0.2 Baso % (Auto) 0.3 Absolute Neuts (auto) 14.9 H Absolute Lymphs (auto) 2.11 Nucleated RBC % 0 Sodium 138 Potassium 3.6 Chloride 105 Carbon Dioxide 20.0 L Anion Gap 13 BUN 15 Creatinine 0.81 Estim Creat Clear Calc 72.55 Est GFR (MDRD) Af Amer 96 Est GFR (MDRD) Non-Af 79 BUN/Creatinine Ratio 18.4 Glucose 148 H Calcium 9.5 Total Bilirubin 0.90 AST 16 ALT 26 Alkaline Phosphatase 78 Total Protein 8.3 H Albumin 4.0 Globulin 4.3 H Albumin/Globulin Ratio 0.9 Lipase 32 Discharge Plan Triage Chief Complaint: Abd Pain ED Provider: Ky Tolentino Dx/Rx/DC Orders Clinical Impression: Abdominal pain, vomiting, and diarrhea Instructions: ED Gastroenteritis, Viral (Adult) Prescriptions: New ondansetron [ondansetron] 4 mg tablet,disintegrating 4 mg PO Q6H PRN PRN (Reason: Nausea) Qty: 15 0RF dicyclomine 20 mg tablet 20 mg PO TID Qty: 15 0RF No Action albuterol sulfate [Ventolin HFA] 1 INHALER inhaler 2 puff inhalation Q6H PRN PRN (Reason: Wheezing) amlodipine 2.5 mg tablet 2.5 mg PO DAILY Patient Comments: TAKE 1 TABLET BY MOUTH EVERY DAY IN THE MORNING propranolol 80 mg capsule,extended release 24 hr 80 mg PO DAILY Patient Comments: TAKE 1 CAPSULE BY MOUTH EVERY DAY IN THE MORNING Primary Care Provider: Amelia Akbar Referrals: Amelia Akbar DO [Primary Care Provider] - Disposition Disposition: Home, Self Care
[2023-06-24] MEDS: Metoclopramide 10 MG/2 ML Vial IV (20:49)
[2023-06-24] MEDS: DiphenhydrAMINE 50 MG/ML Syringe 25 MG IV (20:49)
[2023-06-24 20:52] LABS: Absolute Lymphocyte Count 2.11 X10^3/uL (0.83-4.51); Absolute Neutrophil Count 14.9 X10^3/uL (2.0-7.7); Basophil# 0.05 X10^3/uL; Basophil% 0.3 % (0-1); Eosinophil# 0.03 X10^3/uL; Eosinophils% 0.2 % (0-5); Hemoglobin 15.2 g/dL (12.0-15.0); Lymphocyte # 2.11 X10^3/ul (0.83-4.51); Lymphocyte % 11.9 % (19-41); Mean Corp Hgb Conc 34.5 g/dL (32-36); Mean Corpuscular Hgb 29.2 pg (27.0-32.0); Mean Corpuscular Volume 84.6 fL (81-99); Mean Platelet Vol. 9.4 fl (6.2-12.0); Monocyte# 0.59 X10^3/uL; Monocyte% 3.3 % (0-10); NRBC Flagged by Analyzer 0 % (0-5); Neutrophil % 83.8 % (47-70); Platelet Count 351 K/mm3 (150-450); RBC Distribution Width CV 12.5 % (11.6-14.6); White Blood Count 17.8 K/mm3 (4.4-11.0)
[2023-06-24] MEDS: 0.9% Normal Saline (1000mL) 1,000 ML 1000 ML IV (20:52)
[2023-06-24 22:35] LABS: BUN 15 mg/dL (7-18); Creatinine, Serum 0.81 mg/dL (0.55-1.02); Estimated Creatinine Clearance 72.55 ml/min; Glucose 148 mg/dL (74-106)
[2023-06-24 22:36] LABS: AST(SGOT) 16 U/L (15-37); Alanine Aminotransfer ALT/SGPT 26 U/L (13-56); Calcium,Total 9.5 mg/dL (8.5-10.1); Lipase 32 U/L (13-75); Potassium 3.6 mmol/L (3.5-5.1); Sodium Level 138 mmol/L (136-145)
[2023-06-24 22:37] LABS: Alkaline Phosphatase 78 U/L (45-117); Anion Gap 13 (5-15); Chloride 105 mmol/L (98-107)
[2023-06-24 22:54] LABS: ALB/GLOB Ratio 0.9 RATIO (0.9-2.4); BUN/Creat Ratio 18.4 RATIO (10-20); EST Glomerular Filtration Rate 79 mL/min (>60); Est Glom Filt Rate - Afr Amer 96 mL/min (>60); Globulin 4.3 g/dL (2.2-4.2); Protein, Total 8.3 g/dL (6.4-8.2)
[2023-06-24] MEDS: Dicyclomine 10 MG Capsule 20 MG PO (23:06)
[2023-06-24 23:26] VITALS: BP 168/88; PULSE 72; RESP 18; O2SAT 97
== END 2023-06-25 00:59 | disposition home or self-care (01) ==
PROVIDERS: Emergency Provider Emergency Medicine; PCP Internal Medicine; Visit Provider Emergency Medicine
DX: R10.9 Unspecified abdominal pain (principal); R19.7 Diarrhea, unspecified; R11.10 Vomiting, unspecified; I10 Essential (primary) hypertension; Z79.899 Other long term (current) drug therapy; E66.9 Obesity, unspecified
CPT/HCPCS: 80053; 83690; 85025; 96361; 96374; 96375; 99283; J7030; A4216

== ENCOUNTER 2024-01-06 09:56 | Emergency (ER) | payer OTHER, SELFPAY ==
[2024-01-06 09:57] VITALS: BP 161/111; PULSE 79; RESP 16; TEMP 36.6; O2SAT 98; BMI 33.3
--- NOTE | 2024-01-06 10:04 | EX.ED.GENINJ ---
HPI History of Present Illness Chief Complaint: Laceration [facility] Medical History Hypertensive emergency Home Medications albuterol sulfate 90 mcg/actuation aerosol inhaler (Ventolin HFA) 2 puff inhalation Q6H PRN PRN Wheezing 10/03/13 [History Last Taken 10/03/13] amlodipine 2.5 mg tablet 2.5 mg PO DAILY 06/24/23 [History Last Taken Unknown] dicyclomine 20 mg tablet 20 mg PO TID #15 tabs 06/24/23 [Rx Last Taken Unknown] ondansetron 4 mg disintegrating tablet 4 mg PO Q6H PRN PRN Nausea #15 tabs 06/24/23 [Rx Last Taken Unknown] propranolol 80 mg capsule,24 hr,extended release 80 mg PO DAILY 06/24/23 [History Last Taken Unknown] cephalexin 500 mg capsule 500 mg PO TID 5 days #15 caps 01/06/24 [Rx Last Taken Unknown] Allergy/AdvReac Type Severity Reaction Status Date / Time acetaminophen [From Midrin] Allergy Other Verified 01/06/24 10:00 codeine Allergy Unknown Verified 01/06/24 10:00 dichloralphenazone Allergy Other Verified 01/06/24 10:00 [From Midrin] isometheptene mucate Allergy Other Verified 01/06/24 10:00 [From Midrin] Surgical History History of left heart catheterization (~11/05/19) Social History Smoking Status: Never smoker EXAM Physical Exam Const Vital Signs: 01/06/24 09:57 Temperature 98 F Temperature Source Temporal Pulse Rate 79 Respiratory Rate 16 Blood Pressure 161/111 H Blood Pressure Mean 127 Pulse Ox 98 Oxygen Delivery Method Room Air MDM MDM MDM Narrative Medical decision making narrative: HISTORY OF PRESENT ILLNESS: 48-year-old female presents with concern for injury to left fifth digit. Notes she was attempting to open an old chest. Chest was swelled. Notes that she cut her left fifth digit. Unknown last tetanus. REVIEW OF SYSTEMS: Pertinent positives: Finger pain Pertinent negatives: Numbness tingling, loss sensation or movement PHYSICAL EXAM: Nursing triage notes reviewed, Vital signs reviewed Constitutional: please see mdm Extremities: No edema Neuro: Intact 5/5 strength with ok sign (median), intact finger abduction (ulnar) intact wrist extension (radial n). Intact sensation in the radial, ulnar, and median nerve distributions. Skin: No rash or lesions noted MEDICAL DECISION MAKING: Chief Complaint: Finger injury Factors affecting care: Hypertension Social determinants of health: none History obtained from others: none Consults: none [facility] Narrative: Patient was hemodynamically stable, afebrile and nontoxic-appearing. Exam with linear laceration to the palmar surface of the left fifth digit. Intact tenderness structures flexion extension. Intact sensation in the left fifth digit I considered the following differential diagnosis: Fracture, dislocation, open fracture, laceration I discussed obtaining imaging. Discussed risk and benefits. Discussed treatment if there was a fracture. Patient refused imaging at this time Procedure: Laceration repair. The procedure was performed by myself. Indication: Wound repair Risks and benefits: risks, benefits and alternatives were discussed Consent: Consent was obtained. Wound Details: 0.5 cm, 1 mm in depth, no foreign bodies noted, no deeper structures involved Anesthesia: Digital block Wound prep: Patient was prepped and draped in the usual sterile fashion. Tetanus: Updated today Irrigation Solution: Saline Wound Preparation: Washed with normal saline, soaked in Betadine for 15 minutes The wound was explored to its base in a bloodless field. Procedure Description: Applied 4, 5-0 Vicryl absorbable sutures with close approximation Patient tolerated the procedure well with no immediate complications The patient and/or family, caregivers express understanding. The patient and/or family, caregivers agrees with the plan. Shared decision making: I will have a discussion with the patient and or visitors regarding risk/benefits of further testing or admission. They will be made aware of of the risk/benefits inherent in this decision they will be given the opportunity to voice understanding. Total critical care time today provided was at least 0 minutes. This excludes separately billable procedures. Critical care time (if documented) is secondary to the patient having high probability of clinically significant/life threatening deterioration in the patient's condition which required my urgent intervention. Impression: 1. Fifth digit laceration 2. Finger contusion Dispo: Discharge This note was generated with [employer] dictation software. It may contain incorrect words, spelling, and punctuation that were not noted in review of the chart prior to signing. Discharge Plan Triage Chief Complaint: Laceration ED Provider: Saqib Del Castillo Dx/Rx/DC Orders Instructions: ED Laceration, All Closures Prescriptions: New cephalexin 500 mg capsule 500 mg PO TID 5 Days Qty: 15 0RF No Action albuterol sulfate [Ventolin HFA] 1 INHALER inhaler 2 puff inhalation Q6H PRN PRN (Reason: Wheezing) amlodipine 2.5 mg tablet 2.5 mg PO DAILY Patient Comments: TAKE 1 TABLET BY MOUTH EVERY DAY IN THE MORNING propranolol 80 mg capsule,extended release 24 hr 80 mg PO DAILY Patient Comments: TAKE 1 CAPSULE BY MOUTH EVERY DAY IN THE MORNING ondansetron [ondansetron] 4 mg tablet,disintegrating 4 mg PO Q6H PRN PRN (Reason: Nausea) Qty: 15 0RF dicyclomine 20 mg tablet 20 mg PO TID Qty: 15 0RF Primary Care Provider: Amelia Akbar Referrals: Amelia Akbar DO [Primary Care Provider] - Activity Restrictions/Additional Instructions: Thank you for trusting us with your care today! Your injury was repaired with absorbable sutures. You do not need to come back to get them taken out. They should absorb on their own. Please take Tylenol (2 pills, 650 mg), ibuprofen (2 pills, 400 mg) every 6 hours as needed for pain and fever control. Please take antibiotics as prescribed until course is complete Please return to the emergency department if your symptoms change or worsen. Specifically develop redness, worsening pain, white-yellow discharge, warmth disease or signs of infection. Please follow with your primary care physician for further outpatient evaluation and management. Disposition Disposition: Home, Self Care
[2024-01-06] MEDS: Diphth,Pertuss(Acell),Tet Vac 0.5 ML Vial IM (11:45)
[2024-01-06] MEDS: Cephalexin 250 MG Capsule 500 MG PO (11:45)
== END 2024-01-06 12:05 | disposition home or self-care (01) ==
PROVIDERS: Emergency Provider Emergency Medicine; PCP Internal Medicine; Visit Provider Emergency Medicine
DX: S61.217A Laceration without foreign body of left little finger without damage to nail, initial encounter (principal); I10 Essential (primary) hypertension; S60.052A Contusion of left little finger without damage to nail, initial encounter; W26.8XXA Contact with other sharp object(s), not elsewhere classified, initial encounter; Z23 Encounter for immunization
CPT/HCPCS: 12001; 90471; 90715; 99282